=== PATIENT | male | born 1955 | race Caucasian/White ===

== ENCOUNTER 2016-09-04 18:08 | Inpatient (IN) | payer MEDICAID ==
[2016-09-04] MEDS ORDERED: Sodium Chloride 0.9% 10 ML Syringe FLUSH PRN ×2 (18:35→19:01)
[2016-09-04] MEDS ORDERED: Lactated Ringers 1,000 ML IV SCH ×2 (18:45→22:45)
--- NOTE | 2016-09-04 18:49 | EDM.PDOC ---
ED HPI GI/ABDOMINAL - General Chief Complaint: Abdominal Pain Stated Complaint: [facility] Time Seen by Provider: 09/04/16 18:28 Source: Reports: Patient, EMS, RN notes reviewed History Limitations: Reports: No limitations - History of Present Illness INITIAL COMMENTS - FREE TEXT/NARRATIVE: This 60-year-old gentleman presents emergency department a complaint of abdominal pain, he states he's had abdominal pain for about a week has been evaluated in the clinic x-rays and lab work at that time were consistent with a constipation type presentation. He states the pain used to come and go but now is more constant the last day and half has gotten very intense he is not passing gas has had bowel movements no problems with urination no shortness of breath chest pain or fevers no history of abdominal surgeries - Related Data Allergies/ADRs: Allergies Allergy/AdvReac Type Severity Reaction Status Date / Time Penicillins Allergy Cannot Verified 07/08/15 07:19 Remember Home Meds: Home Meds Aspirin [Adult Low Dose Aspirin EC] 81 mg PO DAILY 07/06/15 [History] Lisinopril [Zestril] 20 mg PO DAILY 07/06/15 [History] Triamcinolone Acetonide [Kenalog 0.1% Crm] 1 applic TOP BID 07/06/15 [History] Warfarin [Coumadin] 5 mg PO MOFR 07/06/15 [History] Warfarin [Coumadin] 7.5 mg PO SUTUWETHSA 07/06/15 [History] atorvaSTATin [Lipitor] 40 mg PO BEDTIME 07/06/15 [History] Amiodarone HCl [Amiodarone HCl] 200 mg PO ASDIRECTED 09/04/16 [History] Carvedilol [Carvedilol] 6.25 mg PO BID 09/04/16 [History] Ranitidine HCl [Ranitidine] 150 mg PO DAILY 09/04/16 [History] Past Medical History HEENT History: Reports: Impaired vision Cardiovascular History: Reports: Afib, Arrhythmia, High cholesterol, Hypertension Respiratory History: Reports: Bronchitis, recurrent Genitourinary History: Reports: Renal calculus Dermatologic History: Reports: Other (see below) Other Dermatologic History: rash on legs - Infectious Disease History Infectious Disease History: Reports: Chicken pox - Past Surgical History Cardiovascular Surgical History: Reports: Cardiac Ablation Male Surgical History: Reports: None Social & Family History - Tobacco Use Smoking Status *Q: Never Smoker Second Hand Smoke Exposure: No - Caffeine Use Caffeine Use: Reports: Coffee - Recreational Drug Use Recreational Drug Use: No ED ROS GENERAL - Review of Systems Review Of Systems: See Below Constitutional: Reports: no symptoms HEENT: Reports: No symptoms Respiratory: Reports: No Symptoms Cardiovascular: Reports: No symptoms GI/Abdominal: Reports: Abdominal pain, Nausea, Vomiting. Denies: Constipation, Diarrhea, Flatus : Reports: no symptoms Musculoskeletal: Reports: no symptoms Skin: Reports: no symptoms Neurological: Reports: No Symptoms ED EXAM, GI/ABD - Physical Exam Exam: See Below Exam Limited By: No limitations General Appearance: alert, WD/WN, no apparent distress Eyes: bilateral: normal appearance Head: atraumatic, normocephalic Neck: normal inspection, supple, non-tender, full range of motion Respiratory/Chest: no respiratory distress, lungs clear, normal breath sounds, no accessory muscle use Cardiovascular: regular rate, rhythm, no murmur GI/Abdominal: normal bowel sounds, soft, no distention, no abnormal bruit, no mass, tenderness (Generalized tenderness to palpation) Back Exam: No: CVA tenderness (R), CVA tenderness (L) Course - Vital Signs Last Recorded V/S: Last Vital Signs Temp 97.7 F 09/04/16 19:30 Pulse 101 H 09/04/16 22:09 Resp 20 09/04/16 19:30 BP 123/87 09/04/16 22:09 Pulse Ox 90 L 09/04/16 22:09 - Orders/Labs/Meds Orders: Active Orders 24 hr Category Date Time Status EKG Documentation Completion [RC] ASDIRECTED Care 09/04/16 18:36 Active Peripheral IV Care [RC] . DIRECTED Care 09/04/16 18:35 Active Abdomen Ltd [US] Stat Exams 09/04/16 20:28 Taken Abdomen Pelvis wo Cont [CT] Stat Exams 09/04/16 19:33 Taken CULTURE BLOOD [BC] Urgent Lab 09/04/16 22:37 Ordered CULTURE BLOOD [BC] Urgent Lab 09/04/16 22:37 Ordered UA W/MICROSCOPIC [URIN] Urgent Lab 09/04/16 18:35 Uncollected Iopamidol [Isovue-300 (61%)] Med 09/04/16 19:15 Active 126 ml IV . DIRECTED Lactated Ringers [Ringers, Lactated] 1,000 ml Med 09/04/16 18:45 Active IV ASDIRECTED Sodium Chloride 0.9% [Saline Flush] Med 09/04/16 18:35 Active 10 ml FLUSH ASDIRECTED PRN Sodium Chloride 0.9% [Saline Flush] Med 09/04/16 19:01 Active 10 ml FLUSH ONETIME PRN Blood Culture x2 Reflex Set [OM.PC] Urgent Oth 09/04/16 22:37 Ordered Peripheral IV Insertion Adult [OM.PC] Urgent Oth 09/04/16 18:35 Ordered EKG 12 Lead [EK] Stat Ther 09/04/16 18:35 Ordered Medication Orders Lactated Ringer's (Ringers, Lactated) 1,000 mls @ 500 mls/hr IV ASDIRECTED RADHA Last Admin: 09/04/16 19:13 Dose: 500 mls/hr Iopamidol (Isovue-300 (61%)) 126 ml IV . [facility]ED [facility] Sodium Chloride (Saline Flush) 10 ml FLUSH ASDIRECTED PRN PRN Reason: Keep Vein Open Sodium Chloride (Saline Flush) 10 ml FLUSH ONETIME PRN PRN Reason: PER RADIOLOGY PROTOCOL Labs: Laboratory Tests 09/04/16 09/04/16 09/04/16 Range/Units 18:48 18:48 18:48 WBC 9.3 (4.5-11.0) K/uL RBC 4.62 (4.30-5.90) M/uL Hgb 13.9 (12.0-15.0) g/dL Hct 42.6 (40.0-54.0) % MCV 92 (80-98) fL MCH 30 (27-31) pg MCHC 33 (32-36) % Plt Count 254 (150-400) K/uL Neut % (Auto) 67 H (36-66) % Lymph % (Auto) 16 L (24-44) % [place] % (Auto) 14 H (2-6) % Eos % (Auto) 2 (2-4) % Baso % (Auto) 1 (0-1) % PT > 100.0 H (9.5-12.0) sec INR (0.80-1.20) APTT 48.5 H (27.0-36.0) sec Sodium 148 (140-148) mmol/L Potassium 4.7 (3.6-5.2) mmol/L Chloride 112 H (100-108) mmol/L Carbon Dioxide 23 (21-32) mmol/L Anion Gap 17.7 H (5.0-14.0) mmol/L BUN 33 H (7-18) mg/dL Creatinine 1.5 H (0.8-1.3) mg/dL Est Cr Clr Drug Dosing 51.30 mL/min Estimated GFR (MDRD) 48 L (>60) Glucose 119 H (74-106) mg/dL Lactic Acid (0.4-2.0) mmol/L Calcium 8.7 (8.5-10.1) mg/dL Total Bilirubin 1.4 H (0.2-1.0) mg/dL AST 39 H (15-37) U/L ALT 70 (12-78) U/L Alkaline Phosphatase 99 (46-116) U/L Troponin I 0.022 (0.000-0.056) ng/mL C-Reactive Protein (0.0-0.3) mg/dL Total Protein 6.7 (6.4-8.2) g/dL Albumin 3.4 (3.4-5.0) g/dL Globulin 3.3 (2.3-3.5) g/dL Albumin/Globulin Ratio 1.0 L (1.2-2.2) Lipase 134 (73-393) U/L 09/04/16 09/04/16 Range/Units 18:48 22:12 WBC (4.5-11.0) K/uL RBC (4.30-5.90) M/uL Hgb (12.0-15.0) g/dL Hct (40.0-54.0) % MCV (80-98) fL MCH (27-31) pg MCHC (32-36) % Plt Count (150-400) K/uL Neut % (Auto) (36-66) % Lymph % (Auto) (24-44) % Baker % (Auto) (2-6) % Eos % (Auto) (2-4) % Baso % (Auto) (0-1) % PT (9.5-12.0) sec INR (0.80-1.20) APTT (27.0-36.0) sec Sodium (140-148) mmol/L Potassium (3.6-5.2) mmol/L Chloride (100-108) mmol/L Carbon Dioxide (21-32) mmol/L Anion Gap (5.0-14.0) mmol/L BUN (7-18) mg/dL Creatinine (0.8-1.3) mg/dL Est Cr Clr Drug Dosing mL/min Estimated GFR (MDRD) (>60) Glucose (74-106) mg/dL Lactic Acid 2.3 H (0.4-2.0) mmol/L Calcium (8.5-10.1) mg/dL Total Bilirubin (0.2-1.0) mg/dL AST (15-37) U/L ALT (12-78) U/L Alkaline Phosphatase (46-116) U/L Troponin I (0.000-0.056) ng/mL C-Reactive Protein 0.46 H (0.0-0.3) mg/dL Total Protein (6.4-8.2) g/dL Albumin (3.4-5.0) g/dL Globulin (2.3-3.5) g/dL Albumin/Globulin Ratio (1.2-2.2) Lipase (73-393) U/L Meds: Medications Generic Name Dose Route Start Last Admin Trade Name Freq PRN Reason Stop Dose Admin Lactated Ringer's 1,000 mls @ 500 mls/hr 09/04/16 18:45 09/04/16 19:13 Ringers, Lactated IV 500 mls/hr ASDIRECTED RADHA Administration Iopamidol 126 ml 09/04/16 19:15 Isovue-300 (61%) IV . DIRECTED RADHA Sodium Chloride 10 ml 09/04/16 18:35 Saline Flush FLUSH ASDIRECTED PRN Keep Vein Open Sodium Chloride 10 ml 09/04/16 19:01 Saline Flush FLUSH ONETIME PRN PER RADIOLOGY PROTOCOL Discontinued Medications Generic Name Dose Route Start Last Admin Trade Name Freq PRN Reason Stop Dose Admin Hydromorphone HCl 1 mg 09/04/16 19:20 09/04/16 19:27 Dilaudid IVPUSH 09/04/16 19:21 1 mg ONETIME ONE Administration Sodium Chloride 78 mls @ 3 mls/sec 09/04/16 19:01 Normal Saline IV 09/04/16 19:02 ONETIME ONE Ondansetron HCl 4 mg 09/04/16 20:21 09/04/16 20:25 Zofran IVPUSH 09/04/16 20:22 4 mg ONETIME ONE Administration Prochlorperazine Edisylate 5 mg 09/04/16 21:10 09/04/16 21:17 Compazine IVPUSH 09/04/16 21:11 5 mg ONETIME ONE Administration Departure - Departure Time of Disposition: 22:40 Disposition: Admitted As Inpatient 67 Condition: fair Clinical Impression: Cholecystitis Forms: ED Department Discharge - My Orders Last 24 Hours: My Active Orders 09/04/16 18:35 Peripheral IV Care [RC] . DIRECTED UA W/MICROSCOPIC [URIN] Urgent Sodium Chloride 0.9% [Saline Flush] 10 ml FLUSH ASDIRECTED PRN Peripheral IV Insertion Adult [OM.PC] Urgent EKG 12 Lead [EK] Stat 09/04/16 18:36 EKG Documentation Completion [RC] ASDIRECTED 09/04/16 18:45 Lactated Ringers [Ringers, Lactated] 1,000 ml IV ASDIRECTED 09/04/16 19:01 Sodium Chloride 0.9% [Saline Flush] 10 ml FLUSH ONETIME PRN 09/04/16 19:15 Iopamidol [Isovue-300 (61%)] 126 ml IV . DIRECTED 09/04/16 19:33 Abdomen Pelvis wo Cont [CT] Stat 09/04/16 20:28 Abdomen Ltd [US] Stat 09/04/16 22:37 CULTURE BLOOD [BC] Urgent CULTURE BLOOD [BC] Urgent Blood Culture x2 Reflex Set [OM.PC] Urgent - Assessment/Plan Last 24 Hours: My Active Orders 09/04/16 18:35 Peripheral IV Care [RC] . DIRECTED UA W/MICROSCOPIC [URIN] Urgent Sodium Chloride 0.9% [Saline Flush] 10 ml FLUSH ASDIRECTED PRN Peripheral IV Insertion Adult [OM.PC] Urgent EKG 12 Lead [EK] Stat 09/04/16 18:36 EKG Documentation Completion [RC] ASDIRECTED 09/04/16 18:45 Lactated Ringers [Ringers, Lactated] 1,000 ml IV ASDIRECTED 09/04/16 19:01 Sodium Chloride 0.9% [Saline Flush] 10 ml FLUSH ONETIME PRN 09/04/16 19:15 Iopamidol [Isovue-300 (61%)] 126 ml IV . DIRECTED 09/04/16 19:33 Abdomen Pelvis wo Cont [CT] Stat 09/04/16 20:28 Abdomen Ltd [US] Stat 09/04/16 22:37 CULTURE BLOOD [BC] Urgent CULTURE BLOOD [BC] Urgent Blood Culture x2 Reflex Set [OM.PC] Urgent Plan: Assessment Acuity = acute Site and laterality = cholecystitis complicated patient with known history of atrial fibrillation on chronic anticoagulation that is supratherapeutic Etiology = unclear etiology Manifestations = pain, nausea, vomiting Location of injury = home Lab values = CBC within normal limits INR not measurable, creatinine elevated at 1.5 consistent with acute renal failure stage GIII a lactic acid mildly elevated at 2.3 consistent lactic acidosis total bilirubin elevated 1.4 consistent hyperbilirubinemia troponin is negative CT scan demonstrates mild Peary cholecystic fat stranding with minimal gallbladder thickening, ultrasound demonstrates gallbladder thickening with possible fluid edema within the gallbladder wall no stones or sludge noted EKG demonstrates atrial fibrillation Plan Called discussed case with Dr. Barnes general surgery recommended admission he will evaluate the patient in the hospital Patient was in agreement with the plan all questions were answered, This note was dictated using [employer] voice recognition software please call with any questions.
[2016-09-04] MEDS ORDERED: Iopamidol 612 MG/ML 150 ML Bottle IV SCH (19:15)
[2016-09-04] MEDS ORDERED: HYDROmorphone 1 MG/ML Syringe IVPUSH ONE (19:20)
[2016-09-04] MEDS ORDERED: Ondansetron 4 MG/2 ML SDV IVPUSH ONE (20:21)
[2016-09-04] MEDS ORDERED: Prochlorperazine 10 MG/2 ML SDV IVPUSH ONE (21:10)
[2016-09-04] MEDS ORDERED: Zolpidem 5 MG Tab PO PRN (22:44)
[2016-09-04] MEDS ORDERED: Phytonadione 10 MG in Sodium Chloride 0.9% 50 ML IV ONE (22:47)
[2016-09-04] MEDS ORDERED: HYDROmorphone/Normal Saline 15 MG/30 ML PCA IV PRN (22:50)
[2016-09-04] MEDS ORDERED: Naloxone 0.4 MG/ML SDV IVPUSH PRN (22:50)
[2016-09-04] MEDS: cefOXitin 2 GM in Sodium Chloride 0.9% 50 ML IV SCH (23:49)
[2016-09-04] MEDS: Ondansetron 4 MG/2 ML SDV IV PRN (23:51)
[2016-09-05] MEDS: cefOXitin 2 GM in Sodium Chloride 0.9% 50 ML IV SCH ×4 (05:02→22:16)
[2016-09-05] MEDS: Amiodarone 200 MG Tab PO SCH ×2 (08:35→20:38)
[2016-09-05] MEDS: Famotidine 20 MG Tab PO SCH (08:35)
[2016-09-05] MEDS: Lisinopril 20 MG Tab PO SCH (08:35)
[2016-09-05] MEDS: Carvedilol 6.25 MG Tab PO SCH ×2 (08:35→20:38)
[2016-09-05] MEDS: Aztreonam/Dextrose-Water 1 GM in Premix Bag 1 BAG IV SCH ×2 (08:36→16:18)
[2016-09-05] MEDS: Triamcinolone Acetonide 0.1% Crm 15 GM Tube TOP SCH ×2 (08:38→20:39)
[2016-09-05] MEDS ORDERED: Phytonadione 10 MG in Sodium Chloride 0.9% 50 ML IV ONE (10:00)
[2016-09-05] MEDS: Dextrose 5%-Lactated Ringers 1,000 ML IV SCH ×2 (11:24→22:09)
[2016-09-05] MEDS: Ondansetron 4 MG/2 ML SDV IV PRN ×2 (12:36→19:20)
--- NOTE | 2016-09-05 16:25 | PCM.HP ---
H&P History of Present Illness - General Date of Service: 09/05/16 Admit Problem/Dx: Admission Diagnosis/Problem Admission Diagnosis/Problem Cholecystitis Source of Information: Patient History Limitations: Reports: No limitations - History of Present Illness Initial Comments - Free Text/Narative: Developed abdominal pain that started in the mid epigastric area that radiates to his back. Location: Reports: abdomen Quality: Reports: Pressure, Sharp, Stabbing Severity: moderate Improves with: Reports: None Worsens with: Reports: Eating Context: Reports: sick contact Associated Symptoms: Reports: nausea/vomiting Abdominal Pain Score (Numeric/FACES): 4 - Related Data Allergies/Adverse Reactions: Allergies Allergy/AdvReac Type Severity Reaction Status Date / Time Penicillins Allergy Cannot Verified 07/08/15 07:19 Remember Home Medications: Home Meds Aspirin [Adult Low Dose Aspirin EC] 81 mg PO DAILY 07/06/15 [History] Lisinopril [Zestril] 20 mg PO DAILY 07/06/15 [History] Triamcinolone Acetonide [Kenalog 0.1% Crm] 1 applic TOP BID 07/06/15 [History] Warfarin [Coumadin] 5 mg PO MOFR 07/06/15 [History] Warfarin [Coumadin] 7.5 mg PO SUTUWETHSA 07/06/15 [History] atorvaSTATin [Lipitor] 40 mg PO BEDTIME 07/06/15 [History] Amiodarone HCl [Amiodarone HCl] 200 mg PO ASDIRECTED 09/04/16 [History] Carvedilol [Carvedilol] 6.25 mg PO BID 09/04/16 [History] Ranitidine HCl [Ranitidine] 150 mg PO BID 09/04/16 [History] Past Medical History HEENT History: Reports: Impaired vision Cardiovascular History: Reports: Afib, Arrhythmia, High cholesterol, Hypertension Respiratory History: Reports: Bronchitis, recurrent Genitourinary History: Reports: Renal calculus Hematologic History: Reports: Other (see below) Other Hematologic History: coumadin use, with current high INR Dermatologic History: Reports: Other (see below) Other Dermatologic History: rash on legs - Infectious Disease History Infectious Disease History: Reports: Chicken pox - Past Surgical History HEENT Surgical History: Reports: None Cardiovascular Surgical History: Reports: Cardiac Ablation Respiratory Surgical History: Reports: None Male Surgical History: Reports: None Social & Family History - Family History Family Medical History: Noncontributory - Tobacco Use Smoking Status *Q: Never Smoker Second Hand Smoke Exposure: No - Caffeine Use Caffeine Use: Reports: Coffee - Recreational Drug Use Recreational Drug Use: No H&P Review of Systems - Review of Systems: Review Of Systems: See Below General: Reports: ROS unobtainable HEENT: Reports: no symptoms Pulmonary: Reports: No Symptoms Cardiovascular: Reports: no symptoms Gastrointestinal: Reports: Abdominal pain, Nausea Genitourinary: Reports: no symptoms Musculoskeletal: Reports: no symptoms Skin: Reports: no symptoms Psychiatric: Reports: no symptoms Neurological: Reports: No Symptoms Hematologic/Lymphatic: Reports: no symptoms Immunologic: Reports: no symptoms Exam - Exam Exam: See Below - Vital Signs Vital Signs: Last Vital Signs Temp 97.3 F 09/05/16 15:22 Pulse 106 H 09/05/16 15:22 Resp 16 09/05/16 15:22 BP 116/93 H 09/05/16 15:22 Pulse Ox 98 09/05/16 15:22 Weight: 185 lb - Exam Quality Assessment: DVT prophylaxis General: alert, oriented, moderate distress HEENT: PERRLA Neck: supple Lungs: Clear to auscultation, Normal respiratory effort Cardiovascular: regular rate, regular rhythm Abdomen: tenderness (in upper ) (Male) Exam: Deferred Rectal (Males) Exam: Deferred Back Exam: normal inspection, full range of motion Extremities: normal inspection Skin: warm, dry, intact Neurological: cranial nerves intact, reflexes equal bilateral Neuro Extensive - Mental Status: alert, oriented x3, normal mood/affect Neuro Extensive - Motor, Sensory, Reflexes: CN II-XII intact, normal gait, normal reflexes Psychiatric: alert, normal affect, normal mood - Patient Data Lab Results last 24 hrs: Laboratory Results - last 24 hr 09/05/16 09/05/16 09/05/16 Range/Units 05:11 05:11 05:11 WBC 8.5 (4.5-11.0) K/uL RBC 4.37 (4.30-5.90) M/uL Hgb 13.4 (12.0-15.0) g/dL Hct 41.5 (40.0-54.0) % MCV 95 (80-98) fL MCH 31 (27-31) pg MCHC 32 (32-36) % Plt Count 211 (150-400) K/uL Neut % (Auto) 81 H (36-66) % Lymph % (Auto) 10 L (24-44) % [place] % (Auto) 9 H (2-6) % Eos % (Auto) 0 L (2-4) % Baso % (Auto) 0 (0-1) % PT 33.4 H (9.5-12.0) sec INR 3.04 H (0.80-1.20) Sodium 149 H (140-148) mmol/L Potassium 5.1 (3.6-5.2) mmol/L Chloride 113 H (100-108) mmol/L Carbon Dioxide 27 (21-32) mmol/L Anion Gap 14.1 H (5.0-14.0) mmol/L BUN 31 H (7-18) mg/dL Creatinine 1.5 H (0.8-1.3) mg/dL Est Cr Clr Drug Dosing 51.30 mL/min Estimated GFR (MDRD) 48 L (>60) Glucose 103 (74-106) mg/dL Calcium 8.5 (8.5-10.1) mg/dL Total Bilirubin 1.5 H (0.2-1.0) mg/dL AST 32 (15-37) U/L ALT 66 (12-78) U/L Alkaline Phosphatase 89 (46-116) U/L Scy-R-Qlephnaplex Pept (5-125) pg/mL Total Protein 6.2 L (6.4-8.2) g/dL Albumin 3.1 L (3.4-5.0) g/dL Globulin 3.1 (2.3-3.5) g/dL Albumin/Globulin Ratio 1.0 L (1.2-2.2) Urine Color Urine Appearance Urine pH (4.5-8.0) Ur Specific [place] (1.008-1.030) Urine Protein (NEGATIVE) mg/dL Urine Glucose (UA) (NEGATIVE) mg/dL Urine Ketones (NEGATIVE) mg/dL Urine Occult Blood (NEGATIVE) Urine Nitrite (NEGAITVE) Urine Bilirubin (NEGATIVE) Urine Urobilinogen (NORMAL) mg/dL Ur Leukocyte Esterase (NEGATIVE) Urine RBC (0-5) Urine WBC (0-5) Ur Epithelial Cells Amorphous Sediment Urine Bacteria Urine Mucus Urine Other 09/05/16 09/05/16 09/05/16 Range/Units 07:09 09:09 21:00 WBC (4.5-11.0) K/uL RBC (4.30-5.90) M/uL Hgb (12.0-15.0) g/dL Hct (40.0-54.0) % MCV (80-98) fL MCH (27-31) pg MCHC (32-36) % Plt Count (150-400) K/uL Neut % (Auto) (36-66) % Lymph % (Auto) (24-44) % [place] % (Auto) (2-6) % Eos % (Auto) (2-4) % Baso % (Auto) (0-1) % PT (9.5-12.0) sec INR (0.80-1.20) Sodium (140-148) mmol/L Potassium (3.6-5.2) mmol/L Chloride (100-108) mmol/L Carbon Dioxide (21-32) mmol/L Anion Gap (5.0-14.0) mmol/L BUN (7-18) mg/dL Creatinine (0.8-1.3) mg/dL Est Cr Clr Drug Dosing mL/min Estimated GFR (MDRD) (>60) Glucose (74-106) mg/dL Calcium (8.5-10.1) mg/dL Total Bilirubin (0.2-1.0) mg/dL AST (15-37) U/L ALT (12-78) U/L Alkaline Phosphatase (46-116) U/L Olw-D-Hmghzddtdpb Pept 4383 H 5557 H (5-125) pg/mL Total Protein (6.4-8.2) g/dL Albumin (3.4-5.0) g/dL Globulin (2.3-3.5) g/dL Albumin/Globulin Ratio (1.2-2.2) Urine Color Yellow Urine Appearance Cloudy Urine pH 5.0 (4.5-8.0) Ur Specific [place] 1.030 (1.008-1.030) Urine Protein Trace (NEGATIVE) mg/dL Urine Glucose (UA) Normal (NEGATIVE) mg/dL Urine Ketones 15 H (NEGATIVE) mg/dL Urine Occult Blood Negative (NEGATIVE) Urine Nitrite Negative (NEGAITVE) Urine Bilirubin Negative (NEGATIVE) Urine Urobilinogen Normal (NORMAL) mg/dL Ur Leukocyte Esterase Negative (NEGATIVE) Urine RBC 5-10 H (0-5) Urine WBC 0-5 (0-5) Ur Epithelial Cells Few Amorphous Sediment Not seen Urine Bacteria Not seen Urine Mucus Many Urine Other See note Result Diagrams: 09/05/16 05:11 09/05/16 05:11 *Q Meaningful Use (ADM) - VTE *Q VTE Criteria *Q: - Stroke *Q Stroke Criteria *Q: - AMI *Q AMI Criteria *Q: Problem List Initiated/Reviewed/Updated: Yes Orders Last 24hrs: Active Orders 24 hr Category Date Time Status Communication Order [RC] STAT Care 09/04/16 22:51 Active Incentive Spirometry [RT Incentive Spirometry] [RC] Care 09/05/16 09:14 Active ASDIRECTED Notify Provider [RC] PRN Care 09/04/16 22:51 Active LAMINA SEARCHER Record [RC] PER UNIT ROUTINE Care 09/04/16 22:51 Active Pulse Oximetry [RC] CONTINUOUS Care 09/04/16 22:51 Active Verify Patient Consent Obtain [RC] ASDIRECTED Care 09/05/16 09:14 Active NPO After Midnight [Nothing per Oral After Midnight Diet 09/05/16 Dinner Active Diet] [DIET] CBC W/O DIFF,HEMOGRAM [HEME] Routine Lab 09/06/16 04:00 Ordered COMPREHENSIVE METABOLIC PN,CMP [CHEM] Routine Lab 09/06/16 04:00 Ordered INR,PT,PROTHROMBIN TIME [COAG] Routine Lab 09/05/16 16:00 Received MAGNESIUM [CHEM] Routine Lab 09/06/16 04:00 Ordered PHOSPHORUS [CHEM] Routine Lab 09/06/16 04:00 Ordered PRO B-TYPE NATRIUR PEPT,BNPPRO [CHEM] Routine Lab 09/06/16 04:00 Ordered Amiodarone [Cordarone] Med 09/07/16 09:00 Active 200 mg PO DAILY Amiodarone [Cordarone] Med 09/05/16 09:00 Active 400 mg PO BID Aztreonam/Dextrose-Water [Azactam in Dextrose,Iso- Med 09/05/16 08:00 Active Osmotic 1 GM/50 ML] 1 gm Premix Bag 1 bag IV Q8H Carvedilol [Coreg] Med 09/05/16 09:00 Active 6.25 mg PO BID Dextrose 5%-Lactated Ringers 1,000 ml Med 09/05/16 09:30 Active IV ASDIRECTED Famotidine [Pepcid] Med 09/05/16 09:00 Active 20 mg PO DAILY HYDROmorphone/Normal Saline [Dilaudid LAMINA SEARCHER 15 MG in NS Med 09/04/16 22:50 Active 30 ML] See Protocol IV ASDIRECTED PRN Lisinopril [Prinivil] Med 09/05/16 09:00 Active 20 mg PO DAILY Naloxone [Narcan] Med 09/04/16 22:50 Active 0.4 mg IVPUSH Q2M PRN Triamcinolone Acetonide [Triamcinolone Acetonide 0.1% Med 09/05/16 09:00 Active Crm] 0 gm TOP BID atorvaSTATin [Lipitor] Med 09/05/16 21:00 Active 40 mg PO BEDTIME cefOXitin [Mefoxin] 2 gm Med 09/04/16 23:00 Active Sodium Chloride 0.9% [Normal Saline] 50 ml IV Q6H Medication Discontinuation Instructions [OM.PC] Stat Oth 09/04/16 22:51 Ordered SCD [Sequential Compression Device] [OM.PC] Routine Oth 09/05/16 02:40 Ordered Medication Orders Amiodarone HCl (Cordarone) 400 mg PO BID [facility] Stop: 09/06/16 21:00 Last Admin: 09/05/16 08:35 Dose: 400 mg Amiodarone HCl (Cordarone) 200 mg PO DAILY [facility] Atorvastatin Calcium (Lipitor) 40 mg PO BEDTIME [facility] Carvedilol (Coreg) 6.25 mg PO BID [facility] Last Admin: 09/05/16 08:35 Dose: 6.25 mg Famotidine (Pepcid) 20 mg PO DAILY [facility] Last Admin: 09/05/16 08:35 Dose: 20 mg Hydromorphone HCl (Dilaudid Packing Machine Feeder 15 Mg In Ns 30 Ml) 0 mg IV ASDIRECTED PRN; Protocol PRN Reason: Pain Last Admin: 09/04/16 23:57 Dose: 15 mg Cefoxitin Sodium 2 gm/ Sodium (Chloride) 50 mls @ 100 mls/hr IV Q6H [facility] Last Admin: 09/05/16 12:00 Dose: 100 mls/hr Admin: 09/05/16 05:02 Dose: 100 mls/hr Admin: 09/04/16 23:49 Dose: 100 mls/hr Aztreonam/Dextrose 1 gm/ (Premix) 50 mls @ 100 mls/hr IV Q8H [facility] Last Admin: 09/05/16 16:18 Dose: 100 mls/hr Admin: 09/05/16 08:36 Dose: 100 mls/hr Dextrose/Lactated Ringer's (Dextrose 5%-Lactated Ringers) 1,000 mls @ 100 mls/ hr IV ASDIRECTED [facility] Last Admin: 09/05/16 11:24 Dose: 100 mls/hr Lisinopril (Prinivil) 20 mg PO DAILY [facility] Last Admin: 09/05/16 08:35 Dose: 20 mg Naloxone HCl (Narcan) 0.4 mg IVPUSH Q2M PRN PRN Reason: Respiratory Distress Ondansetron HCl (Zofran) 4 mg IV Q4H PRN PRN Reason: Nausea/Vomiting Last Admin: 09/05/16 12:36 Dose: 4 mg Admin: 09/04/16 23:51 Dose: 4 mg Sodium Chloride (Saline Flush) 10 ml FLUSH ASDIRECTED PRN PRN Reason: Keep Vein Open Triamcinolone Acetonide (Triamcinolone Acetonide 0.1% Crm) 0 gm TOP BID [facility] Last Admin: 09/05/16 08:38 Dose: 1 applic Zolpidem Tartrate (Ambien) 5 mg PO BEDTIME PRN PRN Reason: Sleep Assessment/Plan Comment:: Assessment: Cholecystitis Plan: Lap Possible Open for Cholecystectomy - General Anesthesia - 09/06/16 NPO after HIPOLITO Gomes
[2016-09-05] MEDS: atorvaSTATin 20 MG Tab PO SCH (20:39)
[2016-09-06] MEDS: Aztreonam/Dextrose-Water 1 GM in Premix Bag 1 BAG IV SCH ×4 (00:55→23:11)
[2016-09-06] MEDS: cefOXitin 2 GM in Sodium Chloride 0.9% 50 ML IV SCH ×4 (05:40→23:09)
[2016-09-06] MEDS ORDERED: Bupivacaine 0.5%/EPINEPHrine 1:200,000 50 ML MDV ONE (06:45)
[2016-09-06] MEDS ORDERED: Povidone-Iodine 10% Soln 118.25 ML Bottle ONE (06:58)
[2016-09-06] MEDS: Dextrose 5%-Lactated Ringers 1,000 ML IV SCH ×2 (07:42→13:53)
[2016-09-06] MEDS: Carvedilol 6.25 MG Tab PO SCH ×2 (08:44→21:31)
[2016-09-06] MEDS: Amiodarone 200 MG Tab PO SCH ×2 (08:45→21:31)
[2016-09-06] MEDS: Lisinopril 20 MG Tab PO SCH (08:46)
[2016-09-06] MEDS: Famotidine 20 MG Tab PO SCH (08:46)
[2016-09-06] MEDS: Triamcinolone Acetonide 0.1% Crm 15 GM Tube TOP SCH ×2 (08:46→21:35)
--- NOTE | 2016-09-06 09:28 | PN ---
DATE OF SERVICE: 09/06/2016 SUBJECTIVE: Domenic is a 60-year-old male. He states his pain is controlled. He will be having a laparoscopic cholecystectomy. His surgery was delayed due to his ProTime level and last night his PT was 17.5, INR was 1.63. This morning it was 14.9 and 1.39. He has no other questions or concerns. OBJECTIVE: GENERAL: Domenic Leger is a 60-year-old male. VITAL SIGNS: TPR is 98.1, 114, 16. Blood pressure 93/72. HEENT: Negative. NECK: Supple. HEART: Regular rate and rhythm. LUNGS: Clear. ABDOMEN: Soft, minimally tender in the right upper quadrant. EXTREMITIES: SCDs are on, and no peripheral edema. ASSESSMENT: Acute cholecystitis. PLAN: Orders to be written after OR. Continued to be n.p.o. Batsheva Patel PA-C /[id number]
[2016-09-06] MEDS ORDERED: fentaNYL 250 MCG/5 ML SDV ONE (09:48)
[2016-09-06] MEDS ORDERED: Succinylcholine/Normal Saline 200 MG/10 ML Syringe ONE (09:49)
[2016-09-06] MEDS ORDERED: Rocuronium 50 MG/5 ML Vial ONE (09:49)
[2016-09-06] MEDS ORDERED: Neostigmine Methylsulfate 1 MG/ML 5 ML Syringe ONE (09:49)
[2016-09-06] MEDS ORDERED: Dexamethasone 4 MG/ML SDV ONE (09:49)
[2016-09-06] MEDS ORDERED: Propofol 200 MG/20 ML SDV ONE (09:49)
[2016-09-06] MEDS ORDERED: Ondansetron 4 MG/2 ML SDV ONE (09:49)
[2016-09-06] MEDS ORDERED: Warfarin 5 MG Tab PO ONE (17:00)
[2016-09-06] MEDS: Ondansetron 4 MG/2 ML SDV IV PRN (18:04)
[2016-09-06] MEDS: atorvaSTATin 20 MG Tab PO SCH (21:31)
[2016-09-07] MEDS: Dextrose 5%-Lactated Ringers 1,000 ML IV SCH (02:50)
[2016-09-07] MEDS: cefOXitin 2 GM in Sodium Chloride 0.9% 50 ML IV SCH ×4 (05:24→23:41)
--- NOTE | 2016-09-07 08:05 | PN ---
DATE OF SERVICE: 09/07/2016 SUBJECTIVE: Domenic did have some difficulties last night with atrial fibrillation. His heart rate went to 180. He is voiding frequently. Pain is controlled. His temp max is 98.7. REVIEW OF SYSTEMS: Remainder of review of systems negative for any pertinent positives or negatives. OBJECTIVE: GENERAL: Domenic Leger is a 60-year-old male. He is alert and orientated. Color pale. VITAL SIGNS: TPR 97.3, 93, 16, blood pressure is 115/86. Oral intake 895, output 200 mL. BETH put out 45 mL of a light pink serous drainage. HEENT: Negative. NECK: Supple. HEART: Regular rate and rhythm. Right now, his pulse rate was 90. He is resting comfortably. ABDOMEN: Dressings dry and intact. Abdominal binder is on and BETH drain is intact. ASSESSMENT: Laparoscopic cholecystectomy and repair of umbilical hernia for acute cholecystitis with pericholecystic abscess and umbilical hernia. Date of surgery, 09/06/2016. PLAN: 1. Regular diet, which is already ordered, to advance as tolerated. 2. Consult Hudson Guzman MD, in regard to amiodarone dosing. 3. Dressing off, may shower. 4. Good pulmonary toilet encouraged. 5. We will evaluate p.r.n. or in a.m. Batsheva Patel PA-C /[id number]
[2016-09-07] MEDS: Aztreonam/Dextrose-Water 1 GM in Premix Bag 1 BAG IV SCH ×2 (08:42→16:50)
[2016-09-07] MEDS: Carvedilol 6.25 MG Tab PO SCH ×2 (08:42→20:08)
[2016-09-07] MEDS: Famotidine 20 MG Tab PO SCH (08:43)
[2016-09-07] MEDS: Lisinopril 20 MG Tab PO SCH (08:43)
[2016-09-07] MEDS: Triamcinolone Acetonide 0.1% Crm 15 GM Tube TOP SCH ×2 (08:44→20:06)
[2016-09-07] MEDS: Acetaminophen/HYDROcodone 325-5 MG Tab PO PRN ×2 (08:58→19:54)
[2016-09-07] MEDS ORDERED: Dextrose 5%-Lactated Ringers 1,000 ML IV SCH (09:00)
[2016-09-07] MEDS ORDERED: Amiodarone 200 MG Tab PO SCH ×2 (09:00→10:06)
[2016-09-07] MEDS ORDERED: Furosemide 40 MG/4 ML VIAL IVPUSH ONE (10:05)
--- NOTE | 2016-09-07 10:12 | PCM.CONS ---
H&P History of Present Illness - General Date of Service: 09/07/16 Admit Problem/Dx: Admission Diagnosis/Problem Admission Diagnosis/Problem Cholecystitis Source of Information: Patient, Provider History Limitations: Reports: No limitations - History of Present Illness Initial Comments - Free Text/Narative: Domenic presented to the emergency room with right upper quadrant pain that radiated to his back and he was admitted for laparoscopic cholecystectomy. He is now postop day to. I was asked to see him by Dr. Barnes/Batsheva Patel regarding amiodarone dosing in atrial fibrillation management. Domenic says that he feels fairly well at this time with only minimal abdominal pain postoperatively. He does complain of some shortness of breath, especially with activity. He has been requiring supplemental oxygen. He says that at baseline he has shortness of breath with activity but it has been much worse since the surgery. He's not having any fevers. Bowels have been moving. He has noticed some increase in his ankle swelling but remains mild. He was started on amiodarone just less than a week ago with atrial fibrillation and a rapid ventricular response noted. He does have a history of atrial fibrillation ablation. Abdominal Pain Score (Numeric/FACES): 4 - Related Data Allergies/Adverse Reactions: Allergies Allergy/AdvReac Type Severity Reaction Status Date / Time Penicillins Allergy Cannot Verified 07/08/15 07:19 Remember Home Medications: Home Meds Aspirin [Adult Low Dose Aspirin EC] 81 mg PO DAILY 07/06/15 [History] Lisinopril [Zestril] 20 mg PO DAILY 07/06/15 [History] Triamcinolone Acetonide [Kenalog 0.1% Crm] 1 applic TOP BID 07/06/15 [History] Warfarin [Coumadin] 5 mg PO MOFR 07/06/15 [History] Warfarin [Coumadin] 7.5 mg PO SUTUWETHSA 07/06/15 [History] atorvaSTATin [Lipitor] 40 mg PO BEDTIME 07/06/15 [History] Amiodarone HCl [Amiodarone HCl] 200 mg PO ASDIRECTED 09/04/16 [History] Carvedilol [Carvedilol] 6.25 mg PO BID 09/04/16 [History] Ranitidine HCl [Ranitidine] 150 mg PO BID 09/04/16 [History] Past Medical History HEENT History: Reports: Impaired vision Cardiovascular History: Reports: Afib, Arrhythmia, High cholesterol, Hypertension Respiratory History: Reports: Bronchitis, recurrent Genitourinary History: Reports: Renal calculus Hematologic History: Reports: Other (see below) Other Hematologic History: coumadin use, with current high INR Dermatologic History: Reports: Other (see below) Other Dermatologic History: rash on legs - Infectious Disease History Infectious Disease History: Reports: Chicken pox - Past Surgical History HEENT Surgical History: Reports: None Cardiovascular Surgical History: Reports: Cardiac Ablation Respiratory Surgical History: Reports: None Male Surgical History: Reports: None Social & Family History - Family History Family Medical History: Noncontributory - Tobacco Use Smoking Status *Q: Never Smoker Second Hand Smoke Exposure: No - Caffeine Use Caffeine Use: Reports: Coffee - Alcohol Use Alcohol Use History: No - Recreational Drug Use Recreational Drug Use: No H&P Review of Systems - Review of Systems: Review Of Systems: See Below Free Text/Narrative: A complete 12 point review of systems was obtained. Pertinent positives and negatives are noted in the history of present illness. All other systems were reviewed and were negative except as noted. Exam - Exam Exam: See Below - Vital Signs Vital Signs: Last Vital Signs Temp 36.3 C 09/07/16 07:03 Pulse 93 09/07/16 08:42 Resp 16 09/07/16 07:03 BP 115/86 09/07/16 08:43 Pulse Ox 97 09/07/16 07:38 Weight: 83.915 kg - Exam Quality Assessment: supplemental oxygen. No: urinary catheter General: alert, oriented, cooperative. No: mild distress HEENT: Conjunctiva clear, Mucosa moist & pink. No: Scleral icterus Neck: supple, trachea midline, JVD Lungs: Normal respiratory effort, Decreased breath sounds (both bases), Crackles (both bases) Cardiovascular: regular rate, irregular rhythm. No: systolic murmur Abdomen: normal bowel sounds, soft. No: distention Back Exam: normal inspection, full range of motion Extremities: normal inspection, edema (trace bilateral ankle edema) Peripheral Pulses: 2+: dorsalis pedis (L), dorsalis pedis (R) Skin: warm, dry, intact Neuro Extensive - Mental Status: alert, oriented x3 Neuro Extensive - Motor, Sensory, Reflexes: CN II-XII intact. No: dysarthria, abnormal motor, tremor Psychiatric: alert, normal affect - Patient Data Lab Results last 24 hrs: Laboratory Results - last 24 hr 09/07/16 09/07/16 09/07/16 Range/Units 04:00 04:00 04:00 WBC 10.0 (4.5-11.0) K/uL RBC 4.27 L (4.30-5.90) M/uL Hgb 12.7 (12.0-15.0) g/dL Hct 41.5 (40.0-54.0) % MCV 97 (80-98) fL MCH 30 (27-31) pg MCHC 31 L (32-36) % Plt Count 209 (150-400) K/uL PT 14.6 H (9.5-12.0) sec INR 1.36 H (0.80-1.20) Sodium 146 (140-148) mmol/L Potassium 4.7 (3.6-5.2) mmol/L Chloride 112 H (100-108) mmol/L Carbon Dioxide 30 (21-32) mmol/L Anion Gap 8.7 (5.0-14.0) mmol/L BUN 17 (7-18) mg/dL Creatinine 1.2 (0.8-1.3) mg/dL Est Cr Clr Drug Dosing 64.13 mL/min Estimated GFR (MDRD) > 60 (>60) Glucose 136 H (74-106) mg/dL Calcium 8.2 L (8.5-10.1) mg/dL Phosphorus 3.0 (2.5-4.9) mg/dL Magnesium 1.6 L (1.8-2.4) mg/dL Total Bilirubin 1.2 H (0.2-1.0) mg/dL AST 44 H D (15-37) U/L ALT 65 (12-78) U/L Alkaline Phosphatase 76 (46-116) U/L Total Protein 6.1 L (6.4-8.2) g/dL Albumin 2.8 L (3.4-5.0) g/dL Globulin 3.3 (2.3-3.5) g/dL Albumin/Globulin Ratio 0.9 L (1.2-2.2) Result Diagrams: 09/07/16 04:00 09/07/16 04:00 Ryley Results last 24 hrs: Microbiology 04/11/17 22:45 Aerobic Blood Culture - Preliminary Blood - Arm, Right NO GROWTH AFTER 2 DAYS Anaerobic Blood Culture - Preliminary NO GROWTH AFTER 2 DAYS 09/06/16 12:17 Gram Stain - Final Gallbladder Imaging Impressions last 24 hrs: CT scan of the abdomen and pelvis - images personally reviewed - I reviewed the images of the CT scan including the lungs. He does have a very small left pleural effusion and a small to moderate right pleural effusion. No evidence for pneumonia or mass on the available images of the lungs. Consult PN Assessment/Plan POD#: 2 Procedures: Procedures DIAGNOSTIC COLONOSCOPY (07/08/15) ECHO EXAM OF ABDOMEN (08/30/16) TTE F-UP OR LMTD (11/15/14) TTE W/DOPPLER COMPLETE (09/16/14) (1) Atrial fibrillation with RVR SNOMED Code(s): 023784987489097 Code(s): I48.91 - UNSPECIFIED ATRIAL FIBRILLATION Current Visit: Yes Problem List Initiated/Reviewed/Updated: Yes My Orders last 24 hours: My Active Orders 09/07/16 09:00 Dextrose 5%-Lactated Ringers 1,000 ml IV ASDIRECTED 09/07/16 10:05 Furosemide [Lasix] 40 mg IVPUSH ONETIME ONE 09/07/16 10:06 Amiodarone [Cordarone] 400 mg PO DAILY 09/11/16 09:00 Amiodarone [Cordarone] 200 mg PO DAILY Plan: Assessment and Plan - Paroxysmal atrial fibrillation with rapid ventricular response - rate control has improved with use of amiodarone. He remains in atrial fibrillation. After reviewing his chart it appears that his weight is up 15 pounds from where was less than 2 months ago. I suspect that volume overload is driving his atrial fibrillation at this time. I don't see any evidence for infection. Bedside examination suggest some volume overload with JVD, edema and crackles. -Furosemide 40 mg x1 now and reassess this afternoon -Continue medical management including beta sunshine -Continue amiodarone with plan to give 4 additional doses of 400 mg once a day and then 200 mg daily starting next Saturday -Optimize electrolytes -Daily weights Chronic systolic congestive heart failure NYHA class II/III - he does not appear to be acutely decompensated at this time but he is over his dry weight. -Diuresis and medical management as above Acute cholecystitis status post cholecystectomy - clinically doing well from the standpoint. -Postop cares per surgical team Thank you for the interesting consultation and allowing me to be involved in Domenic's care. I will continue to follow along during the hospital stay. Hudson Guzman M.D. Requesting Provider: Dr Barnes Date Consult Requested: 09/07/16 Reason for Consult: atrial fibrillation management Patient History Reviewed: Yes Admission H&P Reviewed: Yes Notified Requestor: Yes Time Spent (in minutes): 45
[2016-09-07] MEDS: Amiodarone 200 MG Tab PO SCH (10:56)
[2016-09-07] MEDS ORDERED: Warfarin 2.5 MG Tab PO SCH (13:00)
[2016-09-07] MEDS: atorvaSTATin 20 MG Tab PO SCH (20:07)
[2016-09-08] MEDS: Aztreonam/Dextrose-Water 1 GM in Premix Bag 1 BAG IV SCH ×2 (00:03→08:18)
[2016-09-08] MEDS: cefOXitin 2 GM in Sodium Chloride 0.9% 50 ML IV SCH (04:25)
[2016-09-08] MEDS: Acetaminophen/HYDROcodone 325-5 MG Tab PO PRN (05:59)
[2016-09-08] MEDS: Carvedilol 6.25 MG Tab PO SCH (08:21)
[2016-09-08] MEDS: Amiodarone 200 MG Tab PO SCH (08:21)
[2016-09-08] MEDS: Famotidine 20 MG Tab PO SCH (08:22)
[2016-09-08] MEDS: Triamcinolone Acetonide 0.1% Crm 15 GM Tube TOP SCH (08:22)
[2016-09-08] MEDS: Lisinopril 20 MG Tab PO SCH (08:22)
--- NOTE | 2016-09-08 09:42 | PCM.CONSN ---
- General Info Date of Service: 09/08/16 Functional Status: Reports: pain controlled, tolerating diet, ambulating - Review of Systems General: Denies: Weakness Pulmonary: Denies: shortness of breath Gastrointestinal: Reports: Abdominal pain Systems Review Comment:: No acute events overnight. Respiratory status has improved and he is no longer hypoxic. Lower extremity edema has improved but not quite resolved. Abdominal pain is minimal. Still in atrial fibrillation but is currently rate controlled. - Patient Data Vitals - most recent: Last Vital Signs Temp 35.8 C 09/08/16 07:00 Pulse 88 09/08/16 08:21 Resp 18 09/08/16 07:00 BP 109/85 09/08/16 08:22 Pulse Ox 91 L 09/08/16 07:00 Weight - most recent: 89.267 kg I&O - last 24 hours: Intake & Output 09/07/16 09/08/16 09/08/16 22:59 06:59 14:59 Intake Total 1381 375 650 Output Total 585 150 750 Balance 796 225 -100 Lab Results last 24 hrs: Laboratory Results - last 24 hr 09/08/16 09/08/16 Range/Units 05:30 05:30 PT 27.5 H (9.5-12.0) sec INR 2.52 H (0.80-1.20) Sodium 147 (140-148) mmol/L Potassium 4.1 (3.6-5.2) mmol/L Chloride 111 H (100-108) mmol/L Carbon Dioxide 29 (21-32) mmol/L Anion Gap 11.1 (5.0-14.0) mmol/L BUN 19 H (7-18) mg/dL Creatinine 1.5 H (0.8-1.3) mg/dL Est Cr Clr Drug Dosing 51.30 mL/min Estimated GFR (MDRD) 48 L (>60) Glucose 108 H (74-106) mg/dL Calcium 8.3 L (8.5-10.1) mg/dL Ryley Results last 24 hrs: Microbiology 09/06/16 12:17 Gram Stain - Final Gallbladder Wound Culture - Preliminary NO GROWTH AFTER 1 DAY Anaerobic Culture - Preliminary NO GROWTH AFTER 1 DAY 09/04/16 22:45 Aerobic Blood Culture - Preliminary Blood - Arm, Right NO GROWTH AFTER 3 DAYS Anaerobic Blood Culture - Preliminary NO GROWTH AFTER 3 DAYS Med Orders - Current: Current Medications Hydrocodone Bitart/Acetaminophen (Dexter 325-5 Mg) 1 - 2 tab PO Q4H PRN PRN Reason: PAIN Last Admin: 09/08/16 05:59 Dose: 1 tab Amiodarone HCl (Cordarone) 200 mg PO DAILY [facility] Amiodarone HCl (Cordarone) 400 mg PO DAILY [facility] Stop: 09/10/16 09:01 Last Admin: 09/08/16 08:21 Dose: 400 mg Atorvastatin Calcium (Lipitor) 40 mg PO BEDTIME [facility] Last Admin: 09/07/16 20:07 Dose: 40 mg Carvedilol (Coreg) 6.25 mg PO BID [facility] Last Admin: 09/08/16 08:21 Dose: 6.25 mg Famotidine (Pepcid) 20 mg PO DAILY [facility] Last Admin: 09/08/16 08:22 Dose: 20 mg Hydromorphone HCl (Dilaudid [facility] 15 Mg In Ns 30 Ml) 0 mg IV ASDIRECTED PRN; Protocol PRN Reason: Pain Last Admin: 09/04/16 23:57 Dose: 15 mg Cefoxitin Sodium 2 gm/ Sodium (Chloride) 50 mls @ 100 mls/hr IV Q6H [facility] Last Admin: 09/08/16 04:25 Dose: 100 mls/hr Aztreonam/Dextrose 1 gm/ (Premix) 50 mls @ 100 mls/hr IV Q8H [facility] Last Admin: 09/08/16 08:18 Dose: 100 mls/hr Dextrose/Lactated Ringer's (Dextrose 5%-Lactated Ringers) 1,000 mls @ 25 mls/ hr IV ASDIRECTED [facility] Last Admin: 09/08/16 03:01 Dose: 25 mls/hr Lisinopril (Prinivil) 20 mg PO DAILY [facility] Last Admin: 09/08/16 08:22 Dose: 20 mg Naloxone HCl (Narcan) 0.4 mg IVPUSH Q2M PRN PRN Reason: Respiratory Distress Ondansetron HCl (Zofran) 4 mg IV Q4H PRN PRN Reason: Nausea/Vomiting Last Admin: 09/05/16 19:20 Dose: 4 mg Sodium Chloride (Saline Flush) 10 ml FLUSH ASDIRECTED PRN PRN Reason: Keep Vein Open Triamcinolone Acetonide (Triamcinolone Acetonide 0.1% Crm) 0 gm TOP BID [facility] Last Admin: 09/08/16 08:22 Dose: 1 applic Zolpidem Tartrate (Ambien) 5 mg PO BEDTIME PRN PRN Reason: Sleep Discontinued Medications Amiodarone HCl (Cordarone) 400 mg PO BID [facility] Stop: 09/06/16 21:00 Last Admin: 09/06/16 21:31 Dose: 400 mg Amiodarone HCl (Cordarone) 200 mg PO DAILY [facility] Amiodarone HCl (Cordarone) 400 mg PO DAILY [facility] Stop: 09/10/16 09:01 Bupivacaine HCl/Epinephrine Bitart (Marcaine 0.5%/Epinephrine 1:200,000) Confirm Administered Dose 50 ml .ROUTE .STK-MED ONE Stop: 09/06/16 06:46 Last Admin: 09/06/16 11:42 Dose: 10 ml Dexamethasone (Dexamethasone) Confirm Administered Dose 4 mg .ROUTE .STK-MED ONE Stop: 09/06/16 09:50 Fentanyl (Sublimaze) Confirm Administered Dose 250 mcg .ROUTE .STK-MED ONE Stop: 09/06/16 09:49 Furosemide (Lasix) 40 mg IVPUSH ONETIME ONE Stop: 09/07/16 10:06 Last Admin: 09/07/16 10:55 Dose: 40 mg Glycopyrrolate () Confirm Administered Dose 1 mg .ROUTE .STK-MED ONE Stop: 09/06/16 09:50 Hydromorphone HCl (Dilaudid) 1 mg IVPUSH ONETIME ONE Stop: 09/04/16 19:21 Last Admin: 09/04/16 19:27 Dose: 1 mg Lactated Ringer's (Ringers, Lactated) 1,000 mls @ 500 mls/hr IV ASDIRECTED [facility] Last Admin: 09/04/16 19:13 Dose: 500 mls/hr Sodium Chloride (Normal Saline) 78 mls @ 3 mls/sec IV ONETIME ONE Stop: 09/04/16 19:02 Last Admin: 09/05/16 22:15 Dose: Not Given Aztreonam 1 gm/ Sodium (Chloride) 50 mls @ 100 mls/hr IV Q8HR [facility] Lactated Ringer's (Ringers, Lactated) 1,000 mls @ 125 mls/hr IV ASDIRECTED [facility] Last Admin: 09/04/16 23:48 Dose: 125 mls/hr Phytonadione 10 mg/ Sodium (Chloride) 51 mls @ 100 mls/hr IV NOW ONE Stop: 09/04/16 23:17 Last Admin: 09/05/16 00:44 Dose: 100 mls/hr Aztreonam 1 gm/ Sodium (Chloride) 50 mls @ 100 mls/hr IV Q8H [facility] Last Admin: 09/05/16 01:01 Dose: 100 mls/hr Phytonadione 10 mg/ Sodium (Chloride) 51 mls @ 102 mls/hr IV ONETIME ONE Stop: 09/05/16 10:29 Last Admin: 09/05/16 11:23 Dose: 102 mls/hr Dextrose/Lactated Ringer's (Dextrose 5%-Lactated Ringers) 1,000 mls @ 100 mls/ hr IV ASDIRECTED [facility] Last Admin: 09/07/16 02:50 Dose: 100 mls/hr Iopamidol (Isovue-300 (61%)) 126 ml IV . DIRECTED [facility] Neostigmine Methylsulfate (Neostigmine) Confirm Administered Dose 5 mg .ROUTE .STK-MED ONE Stop: 09/06/16 09:50 Ondansetron HCl (Zofran) 4 mg IVPUSH ONETIME ONE Stop: 09/04/16 20:22 Last Admin: 09/04/16 20:25 Dose: 4 mg Ondansetron HCl (Zofran) Confirm Administered Dose 4 mg .ROUTE .STK-MED ONE Stop: 09/06/16 09:50 Povidone Iodine (Betadine 10% Soln) Confirm Administered Dose 1 ml .ROUTE .STK- MED ONE Stop: 09/06/16 06:59 Prochlorperazine Edisylate (Compazine) 5 mg IVPUSH ONETIME ONE Stop: 09/04/16 21:11 Last Admin: 09/04/16 21:17 Dose: 5 mg Propofol (Diprivan 20 Ml) Confirm Administered Dose 200 mg .ROUTE .STK-MED ONE Stop: 09/06/16 09:50 Rocuronium Bryan (Zemuron) Confirm Administered Dose 50 mg .ROUTE .STK-MED ONE Stop: 09/06/16 09:50 Sodium Chloride (Saline Flush) 10 ml FLUSH ONETIME PRN PRN Reason: PER RADIOLOGY PROTOCOL Succinylcholine Chloride (Succinylcholine In Ns Pf) Confirm Administered Dose 200 mg .ROUTE .STK-MED ONE Stop: 09/06/16 09:50 Warfarin Sodium (Coumadin) 10 mg PO ONETIME ONE Stop: 09/06/16 17:01 Last Admin: 09/06/16 16:46 Dose: 10 mg Warfarin Sodium (Coumadin) 7.5 mg PO DAILY@1300 RADHA Last Admin: 09/07/16 13:33 Dose: 7.5 mg - Exam Quality Assessment: No: supplemental oxygen General: alert, oriented, cooperative, no acute distress Neck: supple Lungs: Clear to auscultation, Normal respiratory effort Cardiovascular: Regular Rate, Irregular Rhythm. No: Murmurs Abdomen: soft, no distension Extremities: no cyanosis, edema (trace bilateral ankle edema) Skin: warm, dry Consult PN Assessment/Plan Procedures: Procedures DIAGNOSTIC COLONOSCOPY (07/08/15) ECHO EXAM OF ABDOMEN (08/30/16) PROTHROMBIN TIME (09/03/16) TTE F-UP OR LMTD (11/15/14) TTE W/DOPPLER COMPLETE (09/16/14) (1) Atrial fibrillation with RVR SNOMED Code(s): 391291992544873 Code(s): I48.91 - UNSPECIFIED ATRIAL FIBRILLATION (2) Chronic systolic CHF (congestive heart failure), NYHA class 2 SNOMED Code(s): 747370944, 917918776, 111300635 Code(s): I50.22 - CHRONIC SYSTOLIC (CONGESTIVE) HEART FAILURE Problem List Initiated/Reviewed/Updated: Yes My Orders last 24 hours: My Active Orders 09/07/16 09:00 Dextrose 5%-Lactated Ringers 1,000 ml IV ASDIRECTED 09/07/16 11:00 Amiodarone [Cordarone] 400 mg PO DAILY 09/08/16 09:41 Ready for Discharge [RC] PER UNIT ROUTINE 09/11/16 09:00 Amiodarone [Cordarone] 200 mg PO DAILY Plan: Assessment and Plan - Paroxysmal atrial fibrillation with rapid ventricular response - rate control has improved with use of amiodarone. He remains in atrial fibrillation. I suspect fluid is driving atrial fibrillation. I don't believe that a cardioversion will be beneficial until his volume status is closer to euvolemic. With recent surgery and a period off of anticoagulation holding off on a cardioversion make sense especially with minimal symptoms. -Furosemide 20 mg by mouth daily -Continue medical management including beta sunshine -Continue amiodarone with plan to give 2 additional doses of 400 mg once a day and then 200 mg daily starting next Saturday -Optimize electrolytes -Daily weights Chronic systolic congestive heart failure NYHA class II/III - he does not appear to be acutely decompensated at this time but he is 15 lbs over his dry weight. -Diuresis and medical management as above -f/u with Leidy Davenport in the heart failure clinic Acute cholecystitis status post cholecystectomy - clinically doing well from the standpoint. -Postop cares per surgical team Hudson Guzman M.D.
[2016-09-08 10:51] VITALS: BP 106/81
--- NOTE | 2016-09-09 15:14 | OR ---
ADDENDUM: This addendum should be added on to the end of the details of procedure section of the report and is as follows: Physician kindergarten teacher assistant, Batsheva Patel, played an essential role in assisting in this case, helping to position the patient, retract structures as needed, as well as suturing and cutting sutures when indicated. Her presence improved the patient's safety and decreased operative time. Henry Barnes MD /[id number]
--- NOTE | 2016-09-10 08:26 | PN ---
DATE OF SERVICE: 09/08/2016 The patient has been afebrile with stable vital signs. He is being released for Dr. Guzman yesterday and overall looks to be doing somewhat better. He has had no further rhythm problems. His pro-time is now therapeutic, and we will not give him any additional Coumadin today, as I think it will probably keep rising somewhat. The BETH drain can come out and, whether or not he will be discharged will be up to Dr. Guzman, after assessment of his medical status. Henry Barnes MD /[id number]
[2016-09-11] MEDS ORDERED: Amiodarone 200 MG Tab PO SCH (09:00)
--- NOTE | 2016-09-11 09:49 | OR ---
DATE OF PROCEDURE: 09/06/2016 PREOPERATIVE DIAGNOSIS: Acute cholecystitis. POSTOPERATIVE DIAGNOSES: 1. Severe cholecystitis with fluid collection with associated localized peritonitis (sterile versus infected abscess). 2. Umbilical hernia. OPERATIVE PROCEDURE: 1. Diagnostic laparoscopy with a cholecystectomy (05647). 2. Drainage of pericholecystic fluid collection (abscess) (30653). 3. Umbilical hernia repair (88899). ANESTHESIA: General. ESTATE PLANNING ATTORNEY: Batsheva Patel PA-C. INDICATIONS FOR PROCEDURE: This is a 60-year-old presenting with a picture of acute cholecystitis. Initially his pro time was over 8, and this has now been corrected, and he is to undergo a cholecystectomy. Potential risks of the procedure including bleeding, infection, injury to underlying viscera, as well as possibility of cardiopulmonary, septic, or hemorrhagic complications leading to were discussed, and the patient wishes to proceed. DETAILS OF PROCEDURE: The patient was taken to the room and placed in a supine position. After general endotracheal anesthesia was induced, the abdomen was prepped and draped. A transverse epigastric incision was made and the peritoneal cavity entered under direct vision with Optiview trocar and inflated 15 mmHg pressure with CO2. Laparoscope was inserted. No underlying trocar insertion site injuries were seen. Following this, a 12-mm subumbilical trocar was placed. The patient was noted to have an umbilical hernia. Portion of the sac was then excised. The trocar was eventually passed through the center of the umbilical hernia to facilitate subsequent repair. One additional 5 mm trocar was placed in the right upper quadrant. At this point, the gallbladder was freed up from some loose acute adhesions to the omentum. These were taken down bluntly. Gallbladder was then retrieved with laparoscopic forceps so as to allow adequate grasping of the gallbladder. As one pulled this forward, there was thin purulent fluid collection with intense redness in the localized area, i.e., localized peritonitis. Cultures of this were obtained and as it was aspirated and evacuated. Dissection began at the gallbladder neck and continued around the gallbladder neck/cystic duct junction. There was marked edema in that area, and eventually the gallbladder neck/cystic duct junction and adjacent cystic artery were both identified, and in each case, 3 clips placed proximally, 1 distally, and the gallbladder neck/cystic duct were divided. The gallbladder was then dissected off the gallbladder bed using electrocautery. One additional vessel entering the gallbladder on the upper aspect of the gallbladder neck was also clipped 3 times proximally and divided. The gallbladder was then brought up to the epigastric trocar site with a specimen bag and eventually manipulated through the abdominal wall. The distal incision needed to be opened fairly large in order to allow removal of the specimen. At this point, the area of dissection was inspected. No bleeding or bile leaks were seen. A Gerardo-Diaz drain was taken through the right lateral trocar site. Initially, four sutures were placed into the epigastric trocar site, which is what would appear to be required to adequately close the fascial defect developed for evacuation of specimen. These were not yet tied and a trocar placed back into that area, and with the laparoscope in the epigastric site, the umbilical hernia was closed with a laparoscopic suture passer, placing 3 stitches of 0 Ethibond stitch orienting the closure in a transverse orientation. At that point, no further problems noted. Remaining trocars removed. The peritoneal cavity deflated and the fascial sutures tied. The skin at the umbilical site was closed with some 4-0 Vicryl skin stitch. The skin and subcutaneous tissue were packed open at the epigastric site so as to minimize chances of wound infection at that level. The patient was taken to the recovery room in satisfactory condition. Henry Barnes MD /[id number]
--- NOTE | 2016-09-16 12:17 | DISCH ---
FINAL DIAGNOSES: 1. Severe cholecystitis with fluid collection with associated localized peritonitis (sterile versus infected abscess). 2. Umbilical hernia. 3. Atrial fibrillation, on chronic anticoagulation. 4. History of cardiac ablation. 5. Postoperative congestive heart failure. 6. History of hypertension. 7. History of hyperlipidemia. 8. History of recurrent bronchitis. OPERATIVE PROCEDURE: Done on 09/06/2016; diagnostic laparoscopy with: 1. Cholecystectomy. 2. Drainage of pericholecystic fluid collection (abscess). 3. Umbilical hernia repair. HOSPITAL COURSE: This is a 60-year-old with a picture of acute cholecystitis to this atrial fibrillation is anticoagulated and after the anticoagulation it was reversed. The patient underwent a laparoscopic cholecystectomy and drainage of pericholecystic abscess and umbilical hernia repair on 09/06/2016. On postop day #1, he was noted to have some degree of congestive heart failure and this was treated medically by 09/08/2016, he was felt to be ready for discharge home. His hyperbilirubinemia noted preoperatively was corrected postoperatively and be sent home with his usual home medications plus Oktaha 5/325 mg 1 to 2 tabs q.4 hours p.r.n. pain and Lasix 20 mg daily. He will be following up with Batsheva Patel in [facility] next week.
== END 2016-09-08 11:52 | disposition home or self-care (01) | DRG 263 ==
LOC: JP.ED 18:08 → JP.MS 22:44
PROVIDERS: ADMIT Surgery; ATTEND Surgery
PROC: 0WQF4ZZ Repair Abdominal Wall, Percutaneous Endoscopic Approach (ICD-10-PCS; principal; 2016-09-06)
PROC: 0W9G4ZX Drainage of Peritoneal Cavity, Percutaneous Endoscopic Approach, Diagnostic (ICD-10-PCS; principal; 2016-09-06)
PROC: 0FT44ZZ Resection of Gallbladder, Percutaneous Endoscopic Approach (ICD-10-PCS; principal; 2016-09-06)
DX: K81.0 Acute cholecystitis (principal); K42.9 Umbilical hernia without obstruction or gangrene; Z79.01 Long term (current) use of anticoagulants; D68.8 Other specified coagulation defects; H54.7 Unspecified visual loss; Z79.82 Long term (current) use of aspirin; Z88.0 Allergy status to penicillin; I48.0 Paroxysmal atrial fibrillation; I11.0 Hypertensive heart disease with heart failure; I50.22 Chronic systolic (congestive) heart failure; R09.02 Hypoxemia
CPT/HCPCS: 36415; 74176; 76705; 80048; 80053; 81001; 83605; 83690; 83735; 83880; 84100; 84484; 85025; 85027; 85610; 85730; 86140; 87040; 87070; 87075; 87205; 88302; 88304; 93005; 94762; 96361; 96374; 96375; 99285-25; A9270-GY; J0694; J0780; J1100; J1170; J1940; J2405; J2704; J3010; J3430; J3490; J7042; J7050; J7120; S0073

== ENCOUNTER 2016-09-09 19:51 | Emergency (ER) | payer MEDICAID ==
[2016-09-09 20:05] VITALS: BP 126/88
[2016-09-09] MEDS ORDERED: HYDROmorphone 1 MG/ML Syringe IM ONE (20:49)
--- NOTE | 2016-09-09 20:50 | EDM.PDOC ---
[id number] 4d STOMACH PAIN Time Seen by Provider: 09/09/16 20:10 Source: Reports: Patient, Family History Limitations: Reports: No limitations - History of Present Illness INITIAL COMMENTS - FREE TEXT/NARRATIVE: 60-year-old male with abdominal pain after having a cholecystectomy 3 days ago. He is having a lot of discomfort today so his family brought him in to be seen. He is not running any fever, has had 3 small bowel movements today and does not feel distended. He has no nausea or vomiting. He took only one pain pill this morning, he has not taken any more because his sister is afraid he will get "addicted". Location: generalized Quality: Reports: ache, cramping Severity: moderate Associated Symptoms: Denies: chest pain, diarrhea, fever/chills, nausea/vomiting - Related Data Allergies/ADRs: Allergies Allergy/AdvReac Type Severity Reaction Status Date / Time Penicillins Allergy Cannot Verified 07/08/15 07:19 Remember Home Meds: Home Meds Aspirin [Adult Low Dose Aspirin EC] 81 mg PO DAILY 07/06/15 [History] Lisinopril [Zestril] 20 mg PO DAILY 07/06/15 [History] Triamcinolone Acetonide [Kenalog 0.1% Crm] 1 applic TOP BID 07/06/15 [History] Warfarin [Coumadin] 5 mg PO DAILY 07/06/15 [History] atorvaSTATin [Lipitor] 40 mg PO BEDTIME 07/06/15 [History] Amiodarone HCl 200 mg PO DAILY 09/04/16 [History] Carvedilol 6.25 mg PO BID 09/04/16 [History] Ranitidine HCl [Ranitidine] 150 mg PO BID 09/04/16 [History] Acetaminophen/HYDROcodone [Cosby 325-5 MG] 1 - 2 tab PO Q4H PRN #30 tablet 09/08 [Rx] Furosemide [Lasix] 20 mg PO DAILY #30 tablet 09/08/16 [Rx] Past Medical History HEENT History: Reports: Impaired vision Cardiovascular History: Reports: Afib, Arrhythmia, High cholesterol, Hypertension Respiratory History: Reports: Bronchitis, recurrent Genitourinary History: Reports: Renal calculus Hematologic History: Reports: Other (see below) Other Hematologic History: coumadin use, with current high INR Dermatologic History: Reports: Other (see below) Other Dermatologic History: rash on legs - Infectious Disease History Infectious Disease History: Reports: Measles - Past Surgical History HEENT Surgical History: Reports: None Cardiovascular Surgical History: Reports: Cardiac Ablation Respiratory Surgical History: Reports: None GI Surgical History: Reports: Cholecystectomy Social & Family History - Family History Family Medical History: Noncontributory - Tobacco Use Smoking Status *Q: Never Smoker Second Hand Smoke Exposure: No - Caffeine Use Caffeine Use: Reports: None - Recreational Drug Use Recreational Drug Use: No ED ROS GENERAL - Review of Systems Review Of Systems: See Below Constitutional: Denies: fever, chills, malaise Respiratory: Denies: Shortness of Breath Cardiovascular: Denies: Chest pain GI/Abdominal: Reports: Abdominal pain. Denies: Constipation, Diarrhea, Nausea, Vomiting : Reports: no symptoms Musculoskeletal: Reports: other (Lower extremities have edema) ED EXAM, GI/ABD - Physical Exam Exam: See Below Exam Limited By: No limitations General Appearance: alert, no apparent distress Eyes: bilateral: normal appearance Respiratory/Chest: no respiratory distress, lungs clear Cardiovascular: regular rate, rhythm GI/Abdominal: normal bowel sounds, tenderness (He does have diffuse tenderness to palpation), other (Surgical incisions look excellent) Extremities: pedal edema (1+ symmetric edema) Course - Vital Signs Last Recorded V/S: Last Vital Signs Temp 99.5 F 09/09/16 20:56 Pulse 86 09/09/16 20:56 Resp 16 09/09/16 20:56 BP 126/88 09/09/16 20:56 Pulse Ox 96 09/09/16 20:56 - Orders/Labs/Meds Orders: Active Orders 24 hr Category Date Time Status Abdomen 2V AP Flat Upright [CR] Stat Exams 09/09/16 20:24 Taken Meds: Medications Discontinued Medications Generic Name Dose Route Start Last Admin Trade Name Freq PRN Reason Stop Dose Admin Hydromorphone HCl 1 mg 09/09/16 20:49 09/09/16 21:02 Dilaudid IM 09/09/16 20:50 1 mg ONETIME ONE Administration - Re-Assessments/Exams Free Text/Narrative Re-Assessment/Exam: 09/09/16 20:49 A flat and upright x-ray was obtained and is normal without any evidence of ileus or obstruction. Patient was given 1 mg of Dilaudid IM for pain control and encouraged to take his pain medications as directed. He can return anytime if worsening such as fever, vomiting, or uncontrolled pain. Departure - Departure Time of Disposition: 21:22 Disposition: Home, Self-Care 01 Condition: good Clinical Impression: Abdominal pain Qualifiers: Abdominal location: generalized Qualified Code(s): R10.84 - Generalized abdominal pain Instructions: Abdominal Pain, Adult, [id number] Referrals: Yuriy Jackson PA [Primary Care Provider] - Forms: ED Department Discharge Care Plan Goals: Take all your prescribed medicines as needed. This includes pain medications. Increase activity and diet as tolerated, and return if worsening such as fever, vomiting, or uncontrolled pain. - My Orders Last 24 Hours: My Active Orders 09/09/16 20:24 Abdomen 2V AP Flat Upright [CR] Stat - Assessment/Plan Last 24 Hours: My Active Orders 09/09/16 20:24 Abdomen 2V AP Flat Upright [CR] Stat
--- NOTE | 2016-09-10 08:42 | CR ---
Abdomen. Findings: Surgical clips right upper quadrant. Central metallic density is not evident on the second view.
== END 2016-09-09 21:15 | disposition home or self-care (01) ==
LOC: JP.ED 19:51
DX: R10.84 Generalized abdominal pain (principal); I48.91 Unspecified atrial fibrillation; I10 Essential (primary) hypertension; E78.00 Pure hypercholesterolemia, unspecified; Z90.49 Acquired absence of other specified parts of digestive tract; Z79.01 Long term (current) use of anticoagulants; Z79.82 Long term (current) use of aspirin; Z79.899 Other long term (current) drug therapy; Z88.0 Allergy status to penicillin
CPT/HCPCS: 74020; 96372; 99284; J1170

== ENCOUNTER 2016-09-19 11:58 | Emergency (ER) | payer MEDICAID ==
[2016-09-19 12:17] VITALS: BP 120/65
--- NOTE | 2016-09-19 12:35 | EDM.PDOC ---
[id number] 4d LEGS SWOLLEN; SOB Time Seen by Provider: 09/19/16 12:20 Source of Information: Reports: Patient, Family History Limitations: Reports: No limitations - History of Present Illness INITIAL COMMENTS - FREE TEXT/NARRATIVE: 60-year-old male with peripheral edema, fatigue, insomnia does not feel he's healing well from his recent surgery. No fevers or chills. Postoperative check 2 days ago was reassuring, he was told to stop pain medications as they were making him nauseous. He had a cholecystectomy last week. He has known atrial fibrillation. Onset: unknown/unsure Severity: moderate Associated Symptoms: Reports: malaise, shortness of breath, weakness, other ( Insomnia). Denies: fever/chills, headaches Lower Abdominal Pain Score (Numeric/FACES): 3 - Related Data Allergies Allergy/AdvReac Type Severity Reaction Status Date / Time Penicillins Allergy Cannot Verified 07/08/15 07:19 Remember Home Meds: Home Meds Aspirin [Adult Low Dose Aspirin EC] 81 mg PO DAILY 07/06/15 [History] Lisinopril [Zestril] 20 mg PO DAILY 07/06/15 [History] Triamcinolone Acetonide [Kenalog 0.1% Crm] 1 applic TOP BID 07/06/15 [History] Warfarin [Coumadin] 5 mg PO DAILY 07/06/15 [History] atorvaSTATin [Lipitor] 40 mg PO BEDTIME 07/06/15 [History] Amiodarone HCl 200 mg PO DAILY 09/04/16 [History] Carvedilol 6.25 mg PO BID 09/04/16 [History] Ranitidine HCl [Ranitidine] 150 mg PO BID 09/04/16 [History] Furosemide [Lasix] 20 mg PO DAILY #30 tablet 09/08/16 [Rx] Past Medical History HEENT History: Reports: Impaired vision Cardiovascular History: Reports: Afib, Arrhythmia, High cholesterol, Hypertension Respiratory History: Reports: Bronchitis, recurrent Genitourinary History: Reports: Renal calculus Hematologic History: Reports: Other (see below) Other Hematologic History: coumadin use, with current high INR Dermatologic History: Reports: Other (see below) Other Dermatologic History: rash on legs - Infectious Disease History Infectious Disease History: Reports: Measles - Past Surgical History HEENT Surgical History: Reports: None Cardiovascular Surgical History: Reports: Cardiac Ablation Respiratory Surgical History: Reports: None GI Surgical History: Reports: Cholecystectomy Social & Family History - Family History Family Medical History: Noncontributory - Tobacco Use Smoking Status *Q: Never Smoker Second Hand Smoke Exposure: No - Caffeine Use Caffeine Use: Reports: None - Recreational Drug Use Recreational Drug Use: No ED ROS GENERAL - Review of Systems Review Of Systems: See Below Constitutional: Denies: fever, chills HEENT: Reports: No symptoms Respiratory: Reports: Shortness of Breath. Denies: Pleuritic Chest Pain Cardiovascular: Reports: Edema (Lower extremity). Denies: Chest pain GI/Abdominal: Denies: Abdominal pain, Distension, Nausea, Vomiting : Reports: no symptoms Skin: Reports: pallor Neurological: Reports: Weakness ED EXAM, GENERAL - Physical Exam Exam: See Below Exam Limited By: No limitations General Appearance: alert, no apparent distress Eye Exam: bilateral eye: normal inspection Neck: other (No JVD) Respiratory/Chest: no respiratory distress, lungs clear Cardiovascular: irregularly irregular GI/Abdominal: soft, non tender, other (Surgical incisions look excellent) Neurological: alert, oriented Psychiatric: depressed mood, flat affect Skin Exam: Warm, Dry Course - Vital Signs Last Recorded V/S: Last Vital Signs Temp 97.9 F 09/19/16 12:17 Pulse 112 H 09/19/16 12:17 Resp 16 09/19/16 12:17 BP 120/65 09/19/16 12:17 Pulse Ox 97 09/19/16 12:17 - Orders/Labs/Meds Labs: Laboratory Tests 09/19/16 09/19/16 Range/Units 12:35 12:35 WBC 8.5 (4.5-11.0) K/uL RBC 4.57 (4.30-5.90) M/uL Hgb 13.8 (12.0-15.0) g/dL Hct 42.8 (40.0-54.0) % MCV 94 (80-98) fL MCH 30 (27-31) pg MCHC 32 (32-36) % Plt Count 240 (150-400) K/uL Neut % (Auto) 73 H (36-66) % Lymph % (Auto) 14 L (24-44) % Mcmullen % (Auto) 11 H (2-6) % Eos % (Auto) 1 L (2-4) % Baso % (Auto) 1 (0-1) % Sodium 142 (140-148) mmol/L Potassium 3.8 (3.6-5.2) mmol/L Chloride 101 (100-108) mmol/L Carbon Dioxide 31 (21-32) mmol/L Anion Gap 10.3 (5.0-14.0) mmol/L BUN 26 H (7-18) mg/dL Creatinine 1.5 H (0.8-1.3) mg/dL Est Cr Clr Drug Dosing 51.30 mL/min Estimated GFR (MDRD) 48 L (>60) Glucose 99 (74-106) mg/dL Calcium 8.8 (8.5-10.1) mg/dL - Re-Assessments/Exams Free Text/Narrative Re-Assessment/Exam: 09/19/16 12:34 Patient's vitals reveal atrial fibrillation with a mild rapid ventricular response from 100 to 115. He is afebrile, his blood pressure is normal and his O2 saturations are 96% on room air. Two-view chest x-ray was obtained along with a BMP and CBC. 09/19/16 13:41 Two-view chest x-ray shows no significant CHF, labs were reassuring. Patient remained stable and asymptomatic while in the emergency room. I asked him to take one extra Lasix after noon for the next several days but no need for hospitalization at this time. Departure - Departure Time of Disposition: 13:58 Disposition: Home, Self-Care 01 Condition: good Clinical Impression: Peripheral edema, Nocturnal dyspnea Instructions: Shortness of Breath, [id number], Edema Referrals: PCP,None [Primary Care Provider] - Forms: ED Department Discharge Care Plan Goals: Continue regular medications but add one extra Lasix dose after your noon meal for the next 3 days. Recheck next week.
--- NOTE | 2016-09-19 13:15 | CR ---
Two-view chest Comparison: CT from 4 days prior There is a small right pleural effusion also demonstrated on the CT exam. There are no infiltrates. There is borderline cardiac enlargement. The vascular structures are within normal limits. Impression: 1. Small right pleural effusion unchanged in the prior CT. 2. No acute infiltrates.
== END 2016-09-19 13:58 | disposition home or self-care (01) ==
LOC: JP.ED 11:58
DX: R06.00 Dyspnea, unspecified (principal); R60.0 Localized edema; I48.91 Unspecified atrial fibrillation; E78.00 Pure hypercholesterolemia, unspecified; I10 Essential (primary) hypertension; Z79.899 Other long term (current) drug therapy; Z90.49 Acquired absence of other specified parts of digestive tract; Z79.82 Long term (current) use of aspirin; Z79.01 Long term (current) use of anticoagulants; Z88.0 Allergy status to penicillin
CPT/HCPCS: 36415; 71020; 71020-26; 80048; 85025; 99285

== ENCOUNTER 2016-09-25 18:43 | Inpatient (IN) | payer MEDICAID ==
--- NOTE | 2016-09-25 19:16 | EDM.PDOC ---
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 Complicated by postoperative pain seen in emergency on the and by edema of his legs seen in emergency on the . Has been struggling with pain and shortness of breath since surgery but feels he is slowly improving and was better yesterday. However since this morning very short of breath very exhausted, lower abdominal pain. He also feels pressure and throbbing in the upper abdomen but this is not painful. Appetite is decreased compared to yesterday he takes his full energy to move around the house. No nausea no vomiting No fever No diarrhea or urinary troubles. He was unable to negotiate the stairs or ramps again to the emergency room and needed a wheelchair. Otherwise she's been getting around without assistance very exhausted compared to usual. The swelling in his legs has actually improved. He sleeps with the legs elevated. Seen in the clinic yesterday, had blood test done, advised by phone to decrease his furosemide which was at 30 mg in morning and 20 mg in the afternoon to just to the morning dose which he did today. No chest pain, some palpitations. No history of heart attack but he had atrial fibrillation and underwent ablation in 2013 which worked for a while until this year when he said persistent atrial fibrillation again. He is on Coumadin because of that. Poor sleep due to discomfort restlessness shortness of breath has to get up and move around. Only had about 4 hours of sleep last night at most. Middle Abdominal Pain Score (Numeric/FACES): 4 Right Shoulder Pain Score (Numeric/FACES): 7 - Related Data Allergies Allergy/AdvReac Type Severity Reaction Status Date / Time Penicillins Allergy Cannot Verified 07/08/15 07:19 Remember Home Meds: Home Meds Warfarin [Coumadin] 5 mg PO DAILY 07/06/15 [History] atorvaSTATin [Lipitor] 40 mg PO BEDTIME 07/06/15 [History] Amiodarone [Cordarone] 200 mg PO DAILY 09/25/16 [History] Aspirin [Halfprin] 81 mg PO DAILY 09/25/16 [History] Carvedilol [Carvedilol] 6.25 mg PO BID 09/25/16 [History] Furosemide [Lasix] 30 mg PO DAILY 09/25/16 [History] Lisinopril [Prinivil] 20 mg PO DAILY 09/25/16 [History] Triamcinolone Acetonide [Kenalog 0.1% Crm] 0 gm TOP DAILY 09/25/16 [History] Past Medical History HEENT History: Reports: Impaired vision Cardiovascular History: Reports: Afib, Arrhythmia, Heart Failure, High cholesterol, Hypertension, Other (see below) Other Cardiovascular History: edema Respiratory History: Reports: Bronchitis, recurrent Gastrointestinal History: Reports: Cholelithiasis Genitourinary History: Reports: Renal calculus Hematologic History: Reports: Other (see below) Other Hematologic History: coumadin use, with current high INR Dermatologic History: Reports: Other (see below) Other Dermatologic History: rash on legs - Infectious Disease History Infectious Disease History: Reports: Measles - Past Surgical History HEENT Surgical History: Reports: None Cardiovascular Surgical History: Reports: Cardiac Ablation Other Cardiovascular Surgeries/Procedures: Jun 2013 Respiratory Surgical History: Reports: None GI Surgical History: Reports: Cholecystectomy Social & Family History - Family History Family Medical History: Noncontributory - Tobacco Use Smoking Status *Q: Never Smoker Second Hand Smoke Exposure: No - Caffeine Use Caffeine Use: Reports: None - Recreational Drug Use Recreational Drug Use: No ED ROS GENERAL - Review of Systems Review Of Systems: See Below Constitutional: Reports: malaise, weakness, fatigue, decreased appetite. Denies : fever, chills, diaphoresis HEENT: Reports: No symptoms Respiratory: Reports: Shortness of Breath. Denies: Pleuritic Chest Pain, Cough , Sputum Cardiovascular: Reports: Dyspnea on exertion, Edema (Mild), Palpitations. Denies: Chest pain, Blood pressure problem, Lightheadedness, Syncope Endocrine: Reports: fatigue GI/Abdominal: Reports: Abdominal pain (Across her lower abdomen), Decreased appetite. Denies: Diarrhea, Difficulty swallowing, Distension, Melena, Nausea, Vomiting : Reports: no symptoms Musculoskeletal: Reports: no symptoms Skin: Reports: no symptoms, change in color (Sister reports that he looks very pale) Neurological: Reports: Weakness. Denies: Confusion, Headache, Paresthesia, Syncope, Change in Speech Psychiatric: Reports: No symptoms Hematologic/Lymphatic: Reports: no symptoms Immunologic: Reports: no symptoms ED EXAM, GENERAL - Physical Exam Exam: See Below Exam Limited By: No limitations General Appearance: alert, mild distress, other (Appears quite tired, does get short of breath with talking but is able to speak full sentences, tachycardia, atrial fibrillation on the monitor with a rapid ventricular rate, otherwise vital signs are normal) Eye Exam: bilateral eye: EOMI, normal inspection Ears: normal external exam, normal canal, hearing grossly normal Nose: normal inspection, normal mucosa Throat/Mouth: Normal inspection, Normal lips, Normal oropharynx, Normal voice, No airway compromise Head: normocephalic Neck: normal inspection, supple, non-tender, other (No JVD distention). No: carotid bruit, lymphadenopathy (R), lymphadenopathy (L) Respiratory/Chest: no accessory muscle use, chest non-tender, rales (At the bases), other (Slightly increased respiratory rate). No: rhonchi Cardiovascular: normal peripheral pulses, tachycardia, irregularly irregular GI/Abdominal: normal bowel sounds, soft, no distention, tender (Mild diffuse), other (Postsurgical laparoscopy scars). No: guarding, hernia, mass (Male) Exam: No hernia Back Exam: normal inspection Extremities: pedal edema (Very mild, some scarring from previous excoriations but no acute signs of infection) Neurological: alert, oriented, no motor/sensory deficits Psychiatric: anxious, flat affect Skin Exam: Warm, Dry, Intact, Other (Generalized pallor) Lymphatic: no adenopathy Course - Vital Signs Last Recorded V/S: Last Vital Signs Temp 36.8 C 09/25/16 18:55 Pulse 124 H 09/25/16 20:14 Resp 24 H 09/25/16 20:14 BP 129/89 09/25/16 21:14 Pulse Ox 99 09/25/16 20:14 - Orders/Labs/Meds Orders: Active Orders 24 hr Category Date Time Status EKG Documentation Completion [RC] ASDIRECTED Care 05/02/17 19:32 Active Chest 2V [CR] Stat Exams 09/25/16 19:31 Taken Chest wo Cont [CT] Stat Exams 09/25/16 21:05 Taken CALCITONIN [REF] Urgent Lab 09/25/16 19:44 Received Sodium Chloride 0.9% [Saline Flush] Med 09/25/16 19:31 Active 10 ml FLUSH ASDIRECTED PRN Saline Lock Insert [OM.PC] Stat Oth 09/25/16 19:31 Ordered EKG 12 Lead [EK] Routine Ther 09/25/16 19:31 Ordered Medication Orders Amiodarone HCl (Cordarone) 200 mg PO DAILY [facility] Aspirin (Halfprin) 81 mg PO DAILY [facility] Carvedilol (Coreg) 6.25 mg PO BID [facility] Sodium Chloride (Normal Saline) 1,000 mls @ 125 mls/hr IV ASDIRECTED RADHA Last Admin: 09/25/16 23:03 Dose: 125 mls/hr Lisinopril (Prinivil) 20 mg PO DAILY [facility] Non-Formulary Medication (Atorvastatin [Lipitor]) 40 mg PO BEDTIME [facility] Sodium Chloride (Saline Flush) 10 ml FLUSH ASDIRECTED PRN PRN Reason: Keep Vein Open Last Admin: 09/25/16 20:05 Dose: 10 ml Warfarin Sodium (Coumadin) 5 mg PO DAILY [facility] Labs: Laboratory Tests 09/25/16 09/25/16 09/25/16 Range/Units 19:44 19:44 22:16 WBC 6.8 (4.5-11.0) K/uL RBC 4.41 (4.30-5.90) M/uL Hgb 13.0 (12.0-15.0) g/dL Hct 41.6 (40.0-54.0) % MCV 94 (80-98) fL MCH 30 (27-31) pg MCHC 31 L (32-36) % Plt Count 276 (150-400) K/uL Sodium 146 (140-148) mmol/L Potassium 4.1 (3.6-5.2) mmol/L Chloride 108 (100-108) mmol/L Carbon Dioxide 28 (21-32) mmol/L Anion Gap 10.4 (5.0-14.0) mmol/L BUN 34 H (7-18) mg/dL Creatinine 1.7 H (0.8-1.3) mg/dL Est Cr Clr Drug Dosing 43.74 mL/min Estimated GFR (MDRD) 41 L (>60) Glucose 104 (74-106) mg/dL Calcium 8.3 L (8.5-10.1) mg/dL Total Bilirubin 1.0 (0.2-1.0) mg/dL AST 37 (15-37) U/L ALT 50 (12-78) U/L Alkaline Phosphatase 87 (46-116) U/L Troponin I 0.022 (0.000-0.056) ng/mL [id number] Pept 7825 H (5-125) pg/mL Total Protein 7.1 (6.4-8.2) g/dL Albumin 3.1 L (3.4-5.0) g/dL Globulin 4.0 H (2.3-3.5) g/dL Albumin/Globulin Ratio 0.8 L (1.2-2.2) Lipase 312 (73-393) U/L Urine Color Yellow Urine Appearance Slightly cloudy Urine pH 5.0 (4.5-8.0) Ur Specific [place] 1.020 (1.008-1.030) Urine Protein Negative (NEGATIVE) mg/dL Urine Glucose (UA) Normal (NEGATIVE) mg/dL Urine Ketones Negative (NEGATIVE) mg/dL Urine Occult Blood Negative (NEGATIVE) Urine Nitrite Negative (NEGAITVE) Urine Bilirubin Negative (NEGATIVE) Urine Urobilinogen Normal (NORMAL) mg/dL Ur Leukocyte Esterase Negative (NEGATIVE) Urine RBC 0-5 (0-5) Urine WBC 0-5 (0-5) Ur Epithelial Cells Rare Amorphous Sediment Moderate Urine Bacteria Not seen Urine Mucus Moderate Urine Other Meds: Medications Generic Name Dose Route Start Last Admin Trade Name Freq PRN Reason Stop Dose Admin Amiodarone HCl 200 mg 09/26/16 09:00 Cordarone PO DAILY [facility] Aspirin 81 mg 09/26/16 09:00 Halfprin PO DAILY [facility] Carvedilol 6.25 mg 09/26/16 09:00 Coreg PO BID [facility] Sodium Chloride 1,000 mls @ 125 mls/hr 09/25/16 23:00 09/25/16 23:03 Normal Saline IV 125 mls/hr ASDIRECTED RADHA Administration Lisinopril 20 mg 09/26/16 09:00 Prinivil PO DAILY [facility] Non-Formulary Medication 40 mg 09/26/16 21:00 Atorvastatin [Lipitor] PO BEDTIME [facility] Sodium Chloride 10 ml 09/25/16 19:31 09/25/16 20:05 Saline Flush FLUSH 10 ml ASDIRECTED PRN Administration Keep Vein Open Warfarin Sodium 5 mg 09/26/16 09:00 Coumadin PO DAILY [facility] Discontinued Medications Generic Name Dose Route Start Last Admin Trade Name Osminq PRN Reason Stop Dose Admin Fentanyl 50 mcg 09/25/16 22:44 09/25/16 22:57 Sublimaze IVPUSH 09/25/16 22:45 50 mcg ONETIME ONE Administration Furosemide 40 mg 09/25/16 20:53 09/25/16 21:14 Lasix IVPUSH 09/25/16 20:54 40 mg ONETIME ONE Administration Levofloxacin/Dextrose 500 mg/ 100 mls @ 100 mls/hr 09/25/16 22:15 Premix IV 09/25/16 23:14 ONETIME ONE Ceftriaxone Sodium 1 gm/ 50 mls @ 100 mls/hr 09/25/16 22:15 09/25/16 23:11 Sodium Chloride IV 09/25/16 22:44 100 mls/hr ONETIME ONE Administration - Re-Assessments/Exams Free Text/Narrative Re-Assessment/Exam: 09/25/16 19:37 60-year-old male, nearly 3 weeks post laparoscopic cholecystectomy for cholecystitis, with history of chronic atrial fibrillation and CHF, has had continuing abdominal pain and increased shortness of breath since surgery. Differential diagnosis includes CHF, pulmonary embolism, myocardial infarction. Pneumonia among others. He is able to speak full sentences at rest and his vital signs are stable. Investigations done WBC 6.8 hemoglobin 13.0, nitrites essentially normal creatinine 1.7 compared to 1.5 a month ago, BNP 7825 versus 4357 a month ago Troponin normal Chest x-ray shows some interstitial changes and persisting right pleural infiltrate compared to previous. EKG is interpreted by the computer as sinus tachycardia but my interpretation shows atrial fibrillation with fusion complexes, overall rate 115, essentially unchanged from August a month ago, but the rate is a bit faster. No signs of acute ischemia. Because of his significant fatigue, and shortness of breath, CT scan done. Interpretation by radiologist as bilateral pleural effusions with atelectasis and bibasilar consolidations worse on the right which are suggestive of pneumonia. Because of his elevated BNP and probable C. chronic CHF, furosemide 40 mg IV given with only mild urinary output. Ceftriaxone 1 g and levofloxacin 5 mg IV ordered Physician occupational therapist contacted for inpatient admission Fentanyl 50 mcg IV for abdominal pain 09/25/16 23:14 Departure - Departure Time of Disposition: 22:16 Disposition: Admitted As Inpatient 67 Condition: good Clinical Impression: Post-operative state, Chronic atrial fibrillation Chronic CHF (congestive heart failure) Qualifiers: Congestive heart failure type: unspecified congestive heart failure type Qualified Code(s): I50.9 - Heart failure, unspecified Pneumonia, unspecified organism Qualifiers: Pneumonia type: due to unspecified organism Laterality: bilateral Lung location : unspecified part of lung Qualified Code(s): J18.9 - Pneumonia, unspecified organism - My Orders Last 24 Hours: My Active Orders 09/25/16 19:31 Chest 2V [CR] Stat Sodium Chloride 0.9% [Saline Flush] 10 ml FLUSH ASDIRECTED PRN Saline Lock Insert [OM.PC] Stat EKG 12 Lead [EK] Routine 09/25/16 19:32 EKG Documentation Completion [RC] ASDIRECTED 09/25/16 19:44 CALCITONIN [REF] Urgent 09/25/16 21:05 Chest wo Cont [CT] Stat - Assessment/Plan Last 24 Hours: My Active Orders 09/25/16 19:31 Chest 2V [CR] Stat Sodium Chloride 0.9% [Saline Flush] 10 ml FLUSH ASDIRECTED PRN Saline Lock Insert [OM.PC] Stat EKG 12 Lead [EK] Routine 09/25/16 19:32 EKG Documentation Completion [RC] ASDIRECTED 09/25/16 19:44 CALCITONIN [REF] Urgent 09/25/16 21:05 Chest wo Cont [CT] Stat
[2016-09-25] MEDS ORDERED: Sodium Chloride 0.9% 10 ML Syringe FLUSH PRN (19:31)
[2016-09-25] MEDS ORDERED: Furosemide 40 MG/4 ML VIAL IVPUSH ONE (20:53)
[2016-09-25] MEDS ORDERED: cefTRIAXone 1 GM in Sodium Chloride 0.9% 50 ML IV ONE (22:15)
[2016-09-25] MEDS ORDERED: Levofloxacin/Dextrose 5%-Water 500 MG in Premix Bag 1 BAG IV ONE (22:15)
[2016-09-25] MEDS ORDERED: fentaNYL 100 MCG/2 ML SDV IVPUSH ONE (22:44)
[2016-09-25] MEDS: Sodium Chloride 0.9% 1,000 ML IV SCH (23:03)
[2016-09-26] MEDS: HYDROmorphone 0.5 MG/0.5 ML Syringe IVPUSH PRN ×2 (00:38→04:13)
--- NOTE | 2016-09-26 00:58 | HP ---
IDENTIFYING DATA: Domenic Leger is a 60-year-old single male from [place], [place]. CHIEF COMPLAINT: Weakness and pain. HISTORY OF PRESENT ILLNESS: This adult male has noted history of recurrent atrial fibrillation with cardiomyopathy. He has had previous cardio ablative procedures with good response noted though recently he has had recurring episodes of atrial fibrillation requiring Coumadin anticoagulant therapy. He was tentatively scheduled for cardiac studding and repeated attempts at atrial ablation for management of his atrial fibrillation earlier this month; however, he presented to the emergency room with complaints of upper abdominal pain and was found to have evidence of acute cholecystitis on studies. He underwent laparoscopic cholecystectomy approximately three weeks ago and was discharged home after two- day hospital stay. Since that time, he notes his appetite has been diminished. He has had anorexia. Denies significant nausea, emesis, hematemesis, diarrhea, melena, or hematochezia. He has had ongoing pain and waxing and waning in the right upper quadrant as well as development of right shoulder and scapular pain this afternoon. He has had no fevers, chills, or purulent sputum production. General malaise and fatigue is noted as well as occasional cardiac subjective palpitations. He denies angina-like pain, sputum production, or syncope. He requires assistance with ambulation secondary to generalized weakness. ALLERGIES: REPORTED TO PENICILLIN. CURRENT MEDICATIONS: Coumadin 5 mg daily, Atorvastatin 40 mg daily, amiodarone 200 mg daily, aspirin 81 mg daily, Carvedilol 6.25 mg b.i.d., furosemide 30 mg a.m. and 20 mg at noon reduced to 20 mg daily, earlier today by direction of his clinic caregiver, lisinopril 20 mg daily, triamcinolone topically p.r.n. for rash. HABITS: User of chewing tobacco, nonsmoker, caffeine intake, and is less than one cup of coffee daily. No routine use of alcohol. IMMUNIZATIONS: Tetanus administered in 2015. SOCIAL HISTORY: Residing independently. Had been caring for his elderly now mother until her earlier this year. He typically performs ADLs independently. FAMILY HISTORY: No familial history of acute infectious diseases in the recent past. REVIEW OF SYSTEMS: NEUROLOGIC: No history of stroke, seizures, or headaches. Glasses are worn. No hearing loss. CARDIAC: As above. Hypertension and atrial fibrillation. No history of ischemic heart disease or diabetes. He does have a history of hyperglycemia. RESPIRATORY: Denies cough, sputum production, COPD, history of tuberculosis, general fatigability, no shortness of breath at rest. No history of sleep apnea. GI: As above. : As above. No nocturia. MUSCULOSKELETAL: Without arthralgias. PHYSICAL EXAMINATION: GENERAL: Appearance is that of a weakened adult male currently resting comfortably in his hospital bed. VITAL SIGNS: Temperature 36.8, pulse 124 and irregular, atrial fibrillation by cardiac monitoring, respiratory rate 24, blood pressure 129/89, O2 sats 99% on room air. HEENT: Hearing is intact with normal canals. Sclerae anicteric. Pupils equal and reactive. No nasal congestion. No oropharyngeal lesions. NECK: No adenopathy or thyromegaly. Brisk irregular carotid pulses. No stridor. LUNGS: Today are clear, non tachypneic, no wheezes or rales heard. No retractions. HEART: Irregular with atrial fibrillation by cardiac monitoring. No murmurs or gallops noted. ABDOMEN: Mild tenderness in the right upper quadrant without guarding, rebound, or referred pain. No CVA tenderness. No other organomegaly is evident. Good femoral pulses. Active bowel sounds. No abdominal bruits noted. EXTREMITIES: Moderate pitting edema of the distal tibial face and ankles bilaterally. Palpable pulses are intact. LABORATORY DATA: WBC 6.8, hemoglobin 13, hematocrit 41.6, platelet count 276,000. Sodium 146, potassium 4.1, BUN 34, creatinine 1.7, glucose 104, calcium 8.3, alkaline phosphatase 87, AST 37. BNP elevated at 7825. Troponin 0.022. Urinalysis unremarkable microscopic dipstick portions. Chest CT obtained to exclude the possibility of pulmonary emboli. No PE evident. Suggestion of right lower lobe pneumonia by CT imaging. IMPRESSION: 1. Generalized weakness and right upper quadrant and shoulder pain with recent laparoscopic cholecystectomy for reasons of acute cholecystitis. 2. Shortness of breath and diminished exercise tolerance likely secondary to congestive heart failure exacerbation. 3. Reported right lower lobe pneumonia on chest CT. 4. Chronic atrial fibrillation with previous cardio ablative treatment. 5. Hypertension. 6. Chronic chewing tobacco use. PLAN: The patient is admitted to telemetry on medical floor for continued monitoring. Furosemide was held. Creatinine has risen slightly since last hospital review earlier this week. We will provide IV fluids in an effort to increase hydration, provide analgesics on a p.r.n. basis. Antibiotic therapy has been initiated with Levaquin and ceftriaxone combination. Blood and urine cultures have been ordered by the ER staff. Encourage assistance with ambulation, low-sodium diet. We will provide IV analgesics in the form of p.r.n. Dilaudid if necessary for pain. Followup BMP and INR in a.m. are requested. Full code status will be instituted. Leonard Loyd MD /[id number]
[2016-09-26] MEDS: Ondansetron 4 MG/2 ML SDV IVPUSH PRN ×4 (06:19→19:12)
[2016-09-26] MEDS: Sodium Chloride 0.9% 1,000 ML IV SCH ×3 (07:56→22:43)
--- NOTE | 2016-09-26 08:29 | PN ---
DATE OF SERVICE: 09/26/2016 SUBJECTIVE: A 60-year-old male with a noted history of recent cholecystectomy for reasons of acute cholecystitis, was admitted yesterday in the late evening hours with complaints of general fatigue, malaise as well as right upper quadrant abdominal pain and right shoulder pain. CT imaging of the chest was obtained to exclude the possibility of pulmonary emboli. Suggestion of a pneumonia was reported by Radiology review with broad-spectrum antibiotics initiated. Domenic states pain through the night, responded to administration of p.r.n. Dilaudid. However, he awoke at 0630 this morning with nausea and recurrent emesis. He has had no hematemesis and no fevers or chills noted. OBJECTIVE: VITAL SIGNS: Temperature 36.3, pulse 104, O2 saturations 95% on room air. Blood pressure 113/88, respiratory rate 16. Atrial fibrillation with mildly tachycardic rate of 110 noted by telemetry monitoring. NECK: Brisk irregular carotid pulses. No bruits. LUNGS: Today are clear and non-tachypneic. HEART: Irregularly irregular without murmurs. ABDOMEN: Active sounds, nondistended, mild tenderness at the right upper quadrant. No guarding, rebound, or referred pain. EXTREMITIES: Currently notes no right shoulder pain. LABORATORY DATA: Followup labs this a.m., INR and Coumadin anticoagulant therapy is supratherapeutic at 5.95. Sodium 145, potassium 4.2, BUN 33, and creatinine 1.5. IMPRESSION AND PLAN: 1. Complaints of general fatigue and poor exercise tolerance. Likely secondary to underlying cardiomyopathy and accompanying atrial fibrillation. Continue to monitor on telemetry services. Maintain a cardiac regimen. Engage in physical therapy. Evaluation and treatment program for general weakness. 2. Nausea with right upper quadrant and right shoulder pain. May be secondary to suspected right lower lobe pneumonia. To exclude the possibility of perioperative complications at his cholecystectomy site, ultrasound is requested today. We will continue to provide p.r.n. Dilaudid as well as Zofran for nausea. Leonard Loyd MD /[id number]
[2016-09-26] MEDS: Carvedilol 6.25 MG Tab PO SCH ×2 (09:08→18:15)
[2016-09-26] MEDS: Lisinopril 20 MG Tab PO SCH (09:08)
[2016-09-26] MEDS: Aspirin 81 MG Tab.EC PO SCH (09:08)
[2016-09-26] MEDS: Amiodarone 200 MG Tab PO SCH (09:08)
[2016-09-26] MEDS: Pantoprazole 40 MG Vial IVPUSH SCH (09:09)
--- NOTE | 2016-09-26 09:50 | CR ---
Mild cardiomegaly. Small pleural effusion right lung base. Trace pleural effusion left lung base. Anaya zy densities within the bilateral lung bases may indicate atelectasis versus infiltrate.
--- NOTE | 2016-09-26 09:56 | US ---
Liver appears homogeneous. Portal vein is patent. Gallbladder is removed. No focal fluid collection with the gallbladder fossa. IVC is patent. Common bile duct measures 4 mm. Right kidney 11.1 cm. No ascites fluid. Visualized portion of the pancreas is unremarkable. No intrahepatic biliary ductal di latation. Impression: 1. Status post cholecystectomy. No focal fluid collection.
[2016-09-26] MEDS ORDERED: Warfarin 5 MG Tab PO SCH (13:00)
[2016-09-26] MEDS: atorvaSTATin 20 MG Tab PO SCH (21:02)
[2016-09-26] MEDS: Levofloxacin 500 MG Tab PO SCH (21:02)
[2016-09-26] MEDS ORDERED: Albuterol 0.083% 2.5 MG/3 ML Neb Soln NEB PRN (21:12)
--- NOTE | 2016-09-26 21:49 | PCM.SN ---
- Free Text/Narrative Note: time: call from [address] [place] [address], request nebulizer for shortness of breath with activity. oxygen sat at >90% a; shortness of breath with activity p; albuterol nebulizer premix every 4 hours as needed for shortness of breath or wheezing.
[2016-09-26] MEDS ORDERED: cefTRIAXone 1 GM in Sodium Chloride 0.9% 50 ML IV SCH (23:00)
[2016-09-27] MEDS ORDERED: Sodium Chloride 0.9% 1,000 ML IV SCH (01:10)
[2016-09-27] MEDS ORDERED: Norepinephrine 4 MG in Dextrose 5% in Water 246 ML IV SCH ×2 (01:15)
[2016-09-27] MEDS: LORazepam 2 MG/ML MDV IVPUSH PRN ×2 (01:46→21:29)
[2016-09-27] MEDS ORDERED: Sodium Chloride 0.9% 500 ML IV ONE ×2 (02:08→05:40)
[2016-09-27] MEDS: HYDROmorphone 0.5 MG/0.5 ML Syringe IVPUSH PRN (05:29)
[2016-09-27] MEDS ORDERED: Phytonadione 5 MG in Sodium Chloride 0.9% 50 ML IV ONE ×2 (06:19→08:00)
[2016-09-27] MEDS: Carvedilol 6.25 MG Tab PO SCH (07:34)
[2016-09-27] MEDS: Aspirin 81 MG Tab.EC PO SCH (08:19)
[2016-09-27] MEDS: Amiodarone 200 MG Tab PO SCH (08:19)
[2016-09-27] MEDS: Pantoprazole 40 MG Vial IVPUSH SCH (08:20)
[2016-09-27] MEDS: Lisinopril 20 MG Tab PO SCH (08:20)
[2016-09-27] MEDS: Sodium Chloride 0.9% 1,000 ML IV SCH ×3 (10:30→17:15)
--- NOTE | 2016-09-27 12:52 | PCM.PN ---
- General Info Date of Service: 09/27/16 Functional Status: Reports: pain controlled, urinating - Review of Systems General: Reports: Fever, Weakness. Denies: Chills Pulmonary: Reports: shortness of breath, cough. Denies: pleuritic chest pain, sputum, wheezing Cardiovascular: Reports: Dyspnea on Exertion. Denies: Chest Pain, Palpitations , Orthopnea, PND Gastrointestinal: Reports: No symptoms Systems Review Comment:: This patient is a 60-year-old gentleman who was admitted [address] Loyd with progressive shortness of breath, weakness, fever, and very to pneumonia. CT scan showed evidence of bibasilar infiltrates with associated pleural effusions. He has been started on IV antibiotics with levofloxacin and Rocephin. Early this morning had some ongoing difficulty with lower blood pressures and increased shortness of breath, shortness of breath responded to nebulizer treatments and blood pressure is improved following fluid boluses. - Patient Data Vitals - most recent: Last Vital Signs Temp 96.2 F 09/27/16 12:42 Pulse 10 L 09/27/16 12:42 Resp 18 09/27/16 12:42 BP 83/69 L 09/27/16 12:42 Pulse Ox 98 09/27/16 12:42 Weight - most recent: 182 lb 12.8 oz I&O - last 24 hours: Intake & Output 09/26/16 09/27/16 09/27/16 22:59 06:59 14:59 Intake Total 1670 2667 100 Output Total 200 125 Balance 1470 2542 100 Lab Results last 24 hrs: Laboratory Results - last 24 hr 09/27/16 09/27/16 09/27/16 Range/Units 05:15 05:15 05:15 WBC 7.5 (4.5-11.0) K/uL RBC 4.28 L (4.30-5.90) M/uL Hgb 12.8 (12.0-15.0) g/dL Hct 41.0 (40.0-54.0) % MCV 96 (80-98) fL MCH 30 (27-31) pg MCHC 31 L (32-36) % Plt Count 236 (150-400) K/uL Neut % (Auto) 70 H (36-66) % Lymph % (Auto) 15 L (24-44) % [place] % (Auto) 12 H (2-6) % Eos % (Auto) 2 (2-4) % Baso % (Auto) 1 (0-1) % PT > 100.0 H (9.5-12.0) sec INR (0.80-1.20) Sodium 146 (140-148) mmol/L Potassium 4.4 (3.6-5.2) mmol/L Chloride 112 H (100-108) mmol/L Carbon Dioxide 26 (21-32) mmol/L Anion Gap 12.4 (5.0-14.0) mmol/L BUN 32 H (7-18) mg/dL Creatinine 1.4 H (0.8-1.3) mg/dL Est Cr Clr Drug Dosing 52.98 mL/min Estimated GFR (MDRD) 52 L (>60) Glucose 90 (74-106) mg/dL Calcium 8.0 L (8.5-10.1) mg/dL Med Orders - Current: Current Medications Albuterol (Proventil Neb Soln) 2.5 mg NEB Q4H PRN PRN Reason: Shortness of Breath Last Admin: 09/26/16 21:56 Dose: 2.5 mg Amiodarone HCl (Cordarone) 200 mg PO DAILY [facility] Last Admin: 09/27/16 08:19 Dose: 200 mg Aspirin (Halfprin) 81 mg PO DAILY [facility] Last Admin: 09/27/16 08:19 Dose: 81 mg Atorvastatin Calcium (Lipitor) 40 mg PO BEDTIME [facility] Last Admin: 09/26/16 21:02 Dose: 40 mg Carvedilol (Coreg) 6.25 mg PO BIDMEALS [facility] Last Admin: 09/27/16 07:34 Dose: 6.25 mg Hydromorphone HCl (Dilaudid) 0.5 mg IVPUSH Q2H PRN PRN Reason: Pain Last Admin: 09/27/16 05:29 Dose: 0.5 mg Ceftriaxone Sodium 1 gm/ (Sodium Chloride) 50 mls @ 100 mls/hr IV Q24H [facility] Last Admin: 09/26/16 22:39 Dose: 100 mls/hr Sodium Chloride (Normal Saline) 1,000 mls @ 250 mls/hr IV ASDIRECTED [facility] Stop: 09/27/16 14:31 Last Admin: 09/27/16 10:30 Dose: 250 mls/hr Levofloxacin (Levaquin) 500 mg PO Q24H [facility] Last Admin: 09/26/16 21:02 Dose: 500 mg Lisinopril (Prinivil) 20 mg PO DAILY [facility] Last Admin: 09/27/16 08:20 Dose: 20 mg Lorazepam (Ativan) 0.5 - 1 mg IVPUSH Q2H PRN PRN Reason: Anxiety Last Admin: 09/27/16 01:46 Dose: 0.5 mg Ondansetron HCl (Zofran) 4 mg IVPUSH Q4H PRN PRN Reason: Nausea/Vomiting Last Admin: 09/26/16 19:12 Dose: 4 mg Pantoprazole Sodium (Protonix) 40 mg PO ACBREAKFAST [facility] Pneumococcal Polyvalent Vaccine (Pneumovax 23) 0.5 ml IM .ONCE ONE Stop: 09/28/16 14:01 Sodium Chloride (Saline Flush) 10 ml FLUSH ASDIRECTED PRN PRN Reason: Keep Vein Open Last Admin: 09/25/16 20:05 Dose: 10 ml Discontinued Medications Fentanyl (Sublimaze) 50 mcg IVPUSH ONETIME ONE Stop: 09/25/16 22:45 Last Admin: 09/25/16 22:57 Dose: 50 mcg Furosemide (Lasix) 40 mg IVPUSH ONETIME ONE Stop: 09/25/16 20:54 Last Admin: 09/25/16 21:14 Dose: 40 mg Levofloxacin/Dextrose 500 mg/ (Premix) 100 mls @ 100 mls/hr IV ONETIME ONE Stop: 09/25/16 23:14 Last Admin: 09/25/16 23:46 Dose: 100 mls/hr Ceftriaxone Sodium 1 gm/ (Sodium Chloride) 50 mls @ 100 mls/hr IV ONETIME ONE Stop: 09/25/16 22:44 Last Admin: 09/25/16 23:11 Dose: 100 mls/hr Sodium Chloride (Normal Saline) 1,000 mls @ 125 mls/hr IV ASDIRECTED [facility] Last Admin: 09/26/16 22:43 Dose: 125 mls/hr Sodium Chloride (Normal Saline) 500 mls @ 999 mls/hr IV .BOLUS ONE Stop: 09/27/16 02:38 Last Admin: 09/27/16 02:19 Dose: 999 mls/hr Sodium Chloride (Normal Saline) 500 mls @ 500 mls/hr IV .BOLUS ONE Stop: 09/27/16 06:39 Last Admin: 09/27/16 05:47 Dose: 500 mls/hr Phytonadione 5 mg/ Sodium (Chloride) 50.5 mls @ 100 mls/hr IV NOW ONE Stop: 09/27/16 08:30 Last Admin: 09/27/16 07:33 Dose: 100 mls/hr Pantoprazole Sodium (Protonix Iv) 40 mg IVPUSH Q24H [facility] Last Admin: 09/27/16 08:20 Dose: 40 mg Warfarin Sodium (Coumadin) 5 mg PO DAILY@1300 [facility] - Exam Quality Assessment: supplemental oxygen, DVT prophylaxis General: alert, oriented, cooperative, mild distress Lungs: Clear to auscultation, Normal respiratory effort, Rales. No: Rhonchi, Wheezing Cardiovascular: Regular Rate, Regular Rhythm, No Murmurs Abdomen: bowel sounds present, soft, no tenderness, no distension Skin: warm, dry, intact - Problem List Review Problem List Initiated/Reviewed/Updated: Yes - My Orders Last 24 Hours: My Active Orders 09/27/16 10:30 Sodium Chloride 0.9% [Normal Saline] 1,000 ml IV ASDIRECTED 09/28/16 05:00 BASIC METABOLIC PANEL,BMP [CHEM] Timed CBC WITH AUTO DIFF [HEME] Timed INR,PT,PROTHROMBIN TIME [COAG] Timed - Plan Plan:: ASSESSMENT AND PLAN BILATERAL PNEUMONIA WITH SEPSIS-ongoing difficulty with shortness of breath and intermittent low blood pressures. Hypoxia has responded to interventions with nebulizer therapy and blood pressures have improved following fluid boluses. -Continue antibiotic therapy with Rocephin and levofloxacin HYPOXIC RESPIRATORY FAILURE-secondary to bilateral pneumonia -Supplemental oxygen as needed -Continue nebulizer therapy ATRIAL FIBRILLATION-status post ablation procedure, remains on anticoagulation with warfarin. INR today is markedly elevated then supratherapeutic. -Hold warfarin -Vitamin K 5 mg IV given earlier this morning -Repeat INR in a.m. CONGESTIVE HEART FAILURE-possible component of ongoing shortness of breath and hypoxia -Continue outpatient medical regimen -Reassess left ventricular function with echocardiogram CHRONIC KIDNEY DISEASE STAGE III -Closely monitor urine output and renal function during hospital stay MAINTENANCE ISSUES -DVT prophylaxis; current therapy with warfarin should provide adequate DVT prophylaxis -GI prophylaxis; continue Protonix -Kennedy catheter; not required -Nutrition; regular diet -Nicotine dependence; not indicated CODE STATUS-FULL CODE ADMISSION STATUS-patient will be admitted to inpatient status, expect at least a 2 night hospital stay for evaluation and management of problems as outlined above. At the time of this admission I do not reasonably expected evaluation and management of this problem will require more than a 96 hour hospital stay. DISPOSITION-anticipate discharge to home after the hospital stay. PRIMARY CARE PROVIDER-
[2016-09-27] MEDS ORDERED: Sodium Chloride 0.9% 1,000 ML IV ONE (14:45)
[2016-09-27] MEDS: Levofloxacin 500 MG Tab PO SCH (21:18)
[2016-09-27] MEDS: atorvaSTATin 20 MG Tab PO SCH (21:18)
[2016-09-28] MEDS: HYDROmorphone 0.5 MG/0.5 ML Syringe IVPUSH PRN (00:50)
[2016-09-28] MEDS: Amiodarone 200 MG Tab PO SCH ×2 (07:25→08:36)
[2016-09-28] MEDS: Aspirin 81 MG Tab.EC PO SCH ×2 (07:26→08:36)
[2016-09-28] MEDS ORDERED: Pantoprazole 40 MG Tab.CR PO SCH (07:30)
[2016-09-28 11:14] VITALS: BP 96/76
[2016-09-28] MEDS ORDERED: Bisacodyl 10 MG Supp RECTAL ONE (12:45)
--- NOTE | 2016-09-28 12:51 | PCM.DCSUM1 ---
Discharge Summary - Hospital Course Brief History: Mr. Leger is a 60-year-old gentleman who is admitted through the emergency room with symptoms of progressive shortness of breath and weakness , on initial evaluation was felt to have pneumonia contributing to current symptoms. - Discharge Data Discharge Date: 09/28/16 Discharge Disposition: Home, Self-Care 01 Condition: Good - Discharge Diagnosis/Problem(s) (1) Acute on chronic systolic CHF (congestive heart failure) SNOMED Code(s): 882926647, 311713914 ICD Code: I50.23 - ACUTE ON CHRONIC SYSTOLIC (CONGESTIVE) HEART FAILURE Status: Acute Current Visit: Yes (2) Mitral regurgitation SNOMED Code(s): 23293993 ICD Code: I34.0 - NONRHEUMATIC MITRAL (VALVE) INSUFFICIENCY Status: Acute Current Visit: Yes (3) Chronic atrial fibrillation SNOMED Code(s): 043618624 ICD Code: I48.2 - CHRONIC ATRIAL FIBRILLATION Status: Chronic Current Visit: Yes - Patient Summary/Data Consults: Consultations 09/26/16 07:59 Consult to Physical Therapy [PT Evaluation and Treatment] [CONS] Routine Please Evaluate and Treat. PT Reason for Consult: Strengthening Pending Discharge: No Discharge Disposition: Home Special Instructions: generalized weakness secondary to recent surgery, CHF This query below is only for informational purposes and is not editable. Admission Diagnosis/Problem: Pneumonia Hospital Course: This patient is a 60-year-old gentleman with a known history of congestive heart failure and atrial fibrillation. He developed symptoms of aggressive shortness of breath and weakness. On evaluation in the emergency department chest x-ray and CT scan suggested possible infection versus fluid. He was started on IV antibiotic therapy for probable pneumonia. Really did not improve and continued to have borderline blood pressures as well as mild elevation in heart rate. Echocardiogram was obtained on the day prior to transfer and showed severely decreased left ventricular function of 20-25% with severe mitral and tricuspid regurgitation. Compared to previous echocardiogram there was worsening of the mitral regurgitation and previously documented ejection fraction 2 years ago was in the range of 40-45%. After discussion of the situation with the patient and family decision was made to proceed with transfer to tertiary care Center for further subspecialty evaluation and management. He has been accepted in transfer by Dr. Loya at [facility] in [facility] and will be transferred via [facility] ambulance. - Patient Instructions Diet: Low Sodium Activity: As Tolerated Other/Special Instructions: Patient will be transferred to [facility] in [facility] via [facility]. - Discharge Plan Home Medications: Home Meds Warfarin [Coumadin] 5 mg PO ASDIRECTED 07/06/15 [History] atorvaSTATin [Lipitor] 40 mg PO BEDTIME 07/06/15 [History] Amiodarone [Cordarone] 200 mg PO DAILY 09/25/16 [History] Aspirin [Halfprin] 81 mg PO DAILY 09/25/16 [History] Carvedilol 6.25 mg PO BID 09/25/16 [History] Furosemide [Lasix] 30 mg PO DAILY 09/25/16 [History] Lisinopril [Prinivil] 20 mg PO DAILY 09/25/16 [History] Triamcinolone Acetonide [Kenalog 0.1% Crm] 0 gm TOP DAILY 09/25/16 [History] Warfarin Sodium [Coumadin] 7.5 mg PO ASDIRECTED 09/26/16 [History] Patient Handouts: Heart Failure, [id number] Referrals: PCP,None [Primary Care Provider] - - Discharge Summary/Plan Comment DC Time >30 min.: No - Patient Data Vitals - Most Recent: Last Vital Signs Temp 96.2 F 09/28/16 11:10 Pulse 117 H 09/28/16 11:10 Resp 16 09/28/16 11:10 BP 96/76 09/28/16 11:10 Pulse Ox 96 09/28/16 11:10 Weight - Most Recent: 182 lb 12.8 oz I&O - Last 24 hours: Intake & Output 09/27/16 09/28/16 09/28/16 22:59 06:59 14:59 Intake Total 1572 Output Total 425 125 Balance 1147 -125 Lab Results - Last 24 hrs: Laboratory Results - last 24 hr 09/28/16 09/28/16 09/28/16 Range/Units 05:15 05:15 05:15 WBC 6.5 (4.5-11.0) K/uL RBC 4.29 L (4.30-5.90) M/uL Hgb 12.8 (12.0-15.0) g/dL Hct 41.0 (40.0-54.0) % MCV 96 (80-98) fL MCH 30 (27-31) pg MCHC 31 L (32-36) % Plt Count 258 (150-400) K/uL Neut % (Auto) 60 (36-66) % Lymph % (Auto) 21 L (24-44) % [place] % (Auto) 16 H (2-6) % Eos % (Auto) 3 (2-4) % Baso % (Auto) 1 (0-1) % PT 20.7 H (9.5-12.0) sec INR 1.91 H D (0.80-1.20) Sodium 143 (140-148) mmol/L Potassium 4.5 (3.6-5.2) mmol/L Chloride 111 H (100-108) mmol/L Carbon Dioxide 27 (21-32) mmol/L Anion Gap 9.5 (5.0-14.0) mmol/L BUN 30 H (7-18) mg/dL Creatinine 1.3 (0.8-1.3) mg/dL Est Cr Clr Drug Dosing 57.06 mL/min Estimated GFR (MDRD) 57 L (>60) Glucose 89 (74-106) mg/dL Calcium 8.0 L (8.5-10.1) mg/dL Med Orders - Current: Current Medications Albuterol (Proventil Neb Soln) 2.5 mg NEB Q4H PRN PRN Reason: Shortness of Breath Last Admin: 09/26/16 21:56 Dose: 2.5 mg Amiodarone HCl (Cordarone) 200 mg PO DAILY [facility] Last Admin: 09/28/16 08:36 Dose: Not Given Aspirin (Halfprin) 81 mg PO DAILY [facility] Last Admin: 09/28/16 08:36 Dose: Not Given Atorvastatin Calcium (Lipitor) 40 mg PO BEDTIME [facility] Last Admin: 09/27/16 21:18 Dose: 40 mg Bisacodyl (Dulcolax) 10 mg RECTAL ONETIME ONE Stop: 09/28/16 12:46 Hydromorphone HCl (Dilaudid) 0.5 mg IVPUSH Q2H PRN PRN Reason: Pain Last Admin: 09/28/16 00:50 Dose: 0.5 mg Lorazepam (Ativan) 0.5 - 1 mg IVPUSH Q2H PRN PRN Reason: Anxiety Last Admin: 09/27/16 21:29 Dose: 0.5 mg Ondansetron HCl (Zofran) 4 mg IVPUSH Q4H PRN PRN Reason: Nausea/Vomiting Last Admin: 09/26/16 19:12 Dose: 4 mg Pantoprazole Sodium (Protonix) 40 mg PO ACBREAKFAST [facility] Last Admin: 09/28/16 07:25 Dose: 40 mg Pneumococcal Polyvalent Vaccine (Pneumovax 23) 0.5 ml IM .ONCE ONE Stop: 09/28/16 14:01 Sodium Chloride (Saline Flush) 10 ml FLUSH ASDIRECTED PRN PRN Reason: Keep Vein Open Last Admin: 09/25/16 20:05 Dose: 10 ml Discontinued Medications Carvedilol (Coreg) 6.25 mg PO BIDMEALS [facility] Last Admin: 09/27/16 07:34 Dose: 6.25 mg Fentanyl (Sublimaze) 50 mcg IVPUSH ONETIME ONE Stop: 09/25/16 22:45 Last Admin: 09/25/16 22:57 Dose: 50 mcg Furosemide (Lasix) 40 mg IVPUSH ONETIME ONE Stop: 09/25/16 20:54 Last Admin: 09/25/16 21:14 Dose: 40 mg Levofloxacin/Dextrose 500 mg/ (Premix) 100 mls @ 100 mls/hr IV ONETIME ONE Stop: 09/25/16 23:14 Last Admin: 09/25/16 23:46 Dose: 100 mls/hr Ceftriaxone Sodium 1 gm/ (Sodium Chloride) 50 mls @ 100 mls/hr IV ONETIME ONE Stop: 09/25/16 22:44 Last Admin: 09/25/16 23:11 Dose: 100 mls/hr Sodium Chloride (Normal Saline) 1,000 mls @ 125 mls/hr IV ASDIRECTED [facility] Last Admin: 09/26/16 22:43 Dose: 125 mls/hr Ceftriaxone Sodium 1 gm/ (Sodium Chloride) 50 mls @ 100 mls/hr IV Q24H [facility] Last Admin: 09/26/16 22:39 Dose: 100 mls/hr Sodium Chloride (Normal Saline) 500 mls @ 999 mls/hr IV .BOLUS ONE Stop: 09/27/16 02:38 Last Admin: 09/27/16 02:19 Dose: 999 mls/hr Sodium Chloride (Normal Saline) 500 mls @ 500 mls/hr IV .BOLUS ONE Stop: 09/27/16 06:39 Last Admin: 09/27/16 05:47 Dose: 500 mls/hr Phytonadione 5 mg/ Sodium (Chloride) 50.5 mls @ 100 mls/hr IV NOW ONE Stop: 09/27/16 08:30 Last Admin: 09/27/16 07:33 Dose: 100 mls/hr Sodium Chloride (Normal Saline) 1,000 mls @ 250 mls/hr IV ASDIRECTED [facility] Stop: 09/27/16 14:31 Last Admin: 09/27/16 17:15 Dose: 250 mls/hr Sodium Chloride (Normal Saline) 1,000 mls @ 250 mls/hr IV BOLUS ONE Stop: 09/27/16 18:44 Last Admin: 09/27/16 14:45 Dose: 250 mls/hr Levofloxacin (Levaquin) 500 mg PO Q24H [facility] Last Admin: 09/27/16 21:18 Dose: 500 mg Lisinopril (Prinivil) 20 mg PO DAILY [facility] Last Admin: 09/27/16 08:20 Dose: 20 mg Pantoprazole Sodium (Protonix Iv) 40 mg IVPUSH Q24H [facility] Last Admin: 09/27/16 08:20 Dose: 40 mg Warfarin Sodium (Coumadin) 5 mg PO DAILY@1300 [facility] *Q Meaningful Use (DIS) - VTE *Q VTE Criteria *Q: - Stroke *Q Stroke Criteria *Q: - AMI *Q AMI Criteria *Q:
--- NOTE | 2016-09-28 13:39 | ECHO ---
REFERRING PRACTITIONER: 1. AO ROOT: 3.37. (NL = 2.0-3.7) 2. AORTIC VALVE EXCURSION: 3. LA: 4.45CM (NL = 1.9-4.0) 4. RV: 2.83. (NL = .09-2.6) 5. LV REDDY: 6.31 (NL = 3.5-5.7) 6. LV SYST: 5.68(NL = 2.2-4.3) 7. FRACTIONAL SHORTENIN. (6102) 8. EJECTION FRACTION: 20% to 25%. (5075) 9. IVS: 1.13(NL = 0.6-1.1) 10. LVPW: 1.06 (NL = 0.6 1.1) INDICATION: Hypoxia and increased shortness of breath. By 2D echo left ventricular function appears to be severely decreased consistent with estimated ejection fraction of 20% to 25%. There is severe global hypokinesis and paradoxical motion of the interventricular septum. There is a small hemodynamically insignificant pericardial effusion. There is biatrial enlargement. Aortic root is within normal range for size. There is mild enlargement of the right ventricle with preserved right ventricular function. There is enlargement of the left ventricle. By Doppler and color Doppler, there was borderline elevation in estimated right ventricular pressure at 38 mmHg. There was severe MR and severe TR. Mild AI and trace PI. IMPRESSION: 1. Severely decreased left ventricular function. Estimated ejection fraction of 20% to 25%. 2. Severe global left ventricular hypokinesis with left ventricular enlargement. 3. Mild right ventricular enlargement with preserved right ventricular function. 4. Biatrial enlargement. 5. Small hemodynamically insignificant pericardial effusion. 6. Borderline elevation and estimated right ventricular pressure at 38 mmHg. 7. Severe mitral regurgitation. 8. Severe tricuspid regurgitation. 9. Mild aortic insufficiency. 10.Trace pulmonary insufficiency. /[id number] MELO
--- NOTE | 2016-09-28 13:43 | ECHO ---
REFERRING PRACTITIONER: 1. AO ROOT: 3.37. (NL = 2.0-3.7) 2. AORTIC VALVE EXCURSION: 3. LA: CM (NL = 1.9-4.0) 4. RV: 2.83. (NL = .09-2.6) 5. LV REDDY: (NL = 3.5-5.7) 6. LV SYST: (NL = 2.2-4.3) 7. FRACTIONAL SHORTENIN. (2542) 8. EJECTION FRACTION: 20% to 25%. (5075) 9. IVS: (NL = 0.6-1.1) 10. LVPW: (NL = 0.6 - 1.1) INDICATION: Hypoxia and increased shortness of breath. LEFT ATRIUM: 4.45. LEFT VENTRICLE DIASTOLIC: 6.31. LEFT VENTRICLE SYSTOLIC: 5.68. INTERVENTRICULAR SEPTAL WALL THICKNESS: 1.13. LEFT VENTRICULAR POSTERIOR WALL THICKNESS: 1.06. By 2D echo left ventricular function appears to be severely decreased consistent with estimated ejection fraction of 20% to 25%. There is severe global hypokinesis and paradoxical motion of the interventricular septum. There is a small hemodynamically insignificant pericardial effusion. There is biatrial enlargement. Aortic root is within normal range for size. There is mild enlargement of the right ventricle with preserved right ventricular function. There is enlargement of the left ventricle. By Doppler and color Doppler, there was borderline elevation in estimated right ventricular pressure at 38 mmHg. There was severe MR and severe TR. Mild AI and trace PI. IMPRESSION: 1. Severely decreased left ventricular function. Estimated ejection fraction of 20% to 25%. 2. Severe global left ventricular hypokinesis with left ventricular enlargement. 3. Mild right ventricular enlargement with preserved right ventricular function. 4. Biatrial enlargement. 5. Small hemodynamically insignificant pericardial effusion. 6. Borderline elevation and estimated right ventricular pressure at 38 mmHg. 7. Severe mitral regurgitation. 8. Severe tricuspid regurgitation. 9. Mild aortic insufficiency. 10.Trace pulmonary insufficiency. /[id number]
[2016-09-28] MEDS ORDERED: Pneumococcal Polyvalent-23 Vaccine 0.5 ML SDV IM ONE (14:00)
== END 2016-09-28 13:45 | DRG 194 ==
LOC: JP.ED 18:43 → JP.MS 22:44
PROVIDERS: ADMIT Family Medicine; ATTEND Hospitalist
DX: I13.0 Hypertensive heart and chronic kidney disease with heart failure and stage 1 through stage 4 chronic kidney disease, or unspecified chronic kidney disease (principal); I50.23 Acute on chronic systolic (congestive) heart failure; N18.3 Chronic kidney disease, stage 3 (moderate); F17.220 Nicotine dependence, chewing tobacco, uncomplicated; J18.9 Pneumonia, unspecified organism; I42.9 Cardiomyopathy, unspecified; J96.91 Respiratory failure, unspecified with hypoxia; I34.0 Nonrheumatic mitral (valve) insufficiency; Z98.890 Other specified postprocedural states; E78.00 Pure hypercholesterolemia, unspecified; H54.7 Unspecified visual loss; I36.1 Nonrheumatic tricuspid (valve) insufficiency; Z79.82 Long term (current) use of aspirin; Z79.01 Long term (current) use of anticoagulants; Z88.0 Allergy status to penicillin; F41.9 Anxiety disorder, unspecified
CPT/HCPCS: 36415; 71020; 71020-26; 71250; 76705; 76705-26; 80048; 80053; 81001; 82308; 83690; 83880; 84484; 85025; 85027; 85610; 93005; 93306; 93306-26; 96361; 96365; 96375; 97110-GP; 97116-GP; 97162-GP; 97530-GP; 99285-25; A9270-GY; C9113; J0696; J1170; J1940; J1956; J2060; J2405; J3010; J3430; J7040; J7050

== ENCOUNTER 2016-10-06 11:01 | Emergency (ER) | payer MEDICAID ==
[2016-10-06 11:26] VITALS: BP 94/67
[2016-10-06] MEDS ORDERED: LORazepam 1 MG Tab PO ONE (11:35)
--- NOTE | 2016-10-06 11:38 | EDM.PDOC ---
ED HPI GENERAL MEDICAL PROBLEM - General Chief Complaint: General Stated Complaint: SOB / STOMACH PAIN Time Seen by Provider: 10/06/16 11:23 Source of Information: Reports: Patient, Family, RN Notes Reviewed History Limitations: Reports: No Limitations - History of Present Illness INITIAL COMMENTS - FREE TEXT/NARRATIVE: 60-year-old gentleman presents emergency department day complaint of shortness of breath he has a known history of systolic congestive heart failure as well as atrial fibrillation was just discharged from the hospital in [place] yesterday , he states he been feeling short of breath for about a month he also admits to being very anxious he is currently wearing a life vest - Related Data Allergies Allergy/AdvReac Type Severity Reaction Status Date / Time Penicillins Allergy Cannot Verified 07/08/15 07:19 Remember Home Meds: Home Meds Warfarin [Coumadin] 5 mg PO ASDIRECTED 07/06/15 [History] atorvaSTATin [Lipitor] 40 mg PO BEDTIME 07/06/15 [History] Amiodarone [Cordarone] 200 mg PO DAILY 09/25/16 [History] Aspirin [Halfprin] 81 mg PO DAILY 09/25/16 [History] Carvedilol 6.25 mg PO BID 09/25/16 [History] Lisinopril [Prinivil] 20 mg PO DAILY 09/25/16 [History] Triamcinolone Acetonide [Kenalog 0.1% Crm] 0 gm TOP DAILY 09/25/16 [History] Lisinopril [Prinivil] 1 tab PO DAILY 10/06/16 [History] Magnesium Oxide [Magnesium] 1 tab PO BID 10/06/16 [History] Ondansetron [IMW: Ondansetron ODT] 4 mg PO .EVERY 6 HOURS 10/06/16 [History] Potassium Chloride [Potassium Chloride] 2 tab PO DAILY 10/06/16 [History] Torsemide [Torsemide] 1.5 tab PO DAILY 10/06/16 [History] Past Medical History HEENT History: Reports: Impaired Vision Cardiovascular History: Reports: Afib, Arrhythmia, Heart Failure, High Cholesterol, Hypertension, Other (See Below) Other Cardiovascular History: edema Respiratory History: Reports: Bronchitis, Recurrent Gastrointestinal History: Reports: Cholelithiasis Genitourinary History: Reports: Renal Calculus Hematologic History: Reports: Other (See Below) Other Hematologic History: coumadin use, with current high INR Dermatologic History: Reports: Other (See Below) Other Dermatologic History: rash on legs - Infectious Disease History Infectious Disease History: Reports: Measles - Past Surgical History GI Surgical History: Reports: Cholecystectomy Social & Family History - Family History Family Medical History: Noncontributory - Tobacco Use Smoking Status *Q: Never Smoker Second Hand Smoke Exposure: No - Caffeine Use Caffeine Use: Reports: None - Recreational Drug Use Recreational Drug Use: No ED ROS GENERAL - Review of Systems Review Of Systems: See Below Constitutional: Reports: Fatigue HEENT: Reports: No Symptoms Respiratory: Reports: Shortness of Breath Cardiovascular: Reports: Dyspnea on Exertion. Denies: Chest Pain GI/Abdominal: Reports: No Symptoms : Reports: No Symptoms Musculoskeletal: Reports: No Symptoms Skin: Reports: No Symptoms Psychiatric: Reports: Anxiety ED EXAM, GENERAL - Physical Exam Exam: See Below Free Text/Narrative:: General: Male, not in any distress, alert and oriented x3 HEENT: head is atraumatic normocephalic, eyes pupils equal round reactive to light, sclera clear no conjunctivitis appreciated. Ears tympanic membranes clear and white landmarks and light reflex are present bilaterally canals are clear. Nose no septal deviation, nares are clear, no blood present. Mouth mucosa is moist and pink no erythema or exudate noted in soft palate, tongue is midline uvula is midline, dentition is intact. Neck: Supple no thyromegaly no tracheal deviation. Nodes: Cervical nodes subclavicular nodes nontender no palpable lymphadenopathy noted. Lungs: clear to auscultation bilaterally with symmetrical respirations, no adventitious noise appreciated. CV: Irregularly irregular rate and rhythm S1 and S2 appreciated no murmurs rubs or gallops noted. Abdomen: Soft, nontender, no palpable masses or organomegaly appreciated, no distention no guarding bowel sounds are present, . Neuro: Cranial nerves II through XII grossly intact Skin: Warm and dry, intact Extremities: No lower extremity edema appreciated, . Course - Vital Signs Last Recorded V/S: Last Vital Signs Temp 98.4 F 10/06/16 11:24 Pulse 65 10/06/16 11:24 Resp 14 10/06/16 11:24 BP 94/67 10/06/16 11:24 Pulse Ox 97 10/06/16 11:24 - Orders/Labs/Meds Labs: Laboratory Tests 10/06/16 10/06/16 10/06/16 Range/Units 11:49 11:49 11:49 WBC 7.9 (4.5-11.0) K/uL RBC 4.54 (4.30-5.90) M/uL Hgb 13.1 (12.0-15.0) g/dL Hct 41.1 (40.0-54.0) % MCV 91 (80-98) fL MCH 29 (27-31) pg MCHC 32 (32-36) % Plt Count 215 (150-400) K/uL Neut % (Auto) 62 (36-66) % Lymph % (Auto) 16 L (24-44) % [place] % (Auto) 17 H (2-6) % Eos % (Auto) 4 (2-4) % Baso % (Auto) 1 (0-1) % PT 32.1 H (9.5-12.0) sec INR 2.93 H (0.80-1.20) Sodium 143 (140-148) mmol/L Potassium 4.1 (3.6-5.2) mmol/L Chloride 104 (100-108) mmol/L Carbon Dioxide 31 (21-32) mmol/L Anion Gap 7.6 (5.0-14.0) mmol/L BUN 25 H (7-18) mg/dL Creatinine 1.4 H (0.8-1.3) mg/dL Est Cr Clr Drug Dosing 54.96 mL/min Estimated GFR (MDRD) 52 L (>60) Glucose 92 (74-106) mg/dL Calcium 8.4 L (8.5-10.1) mg/dL Total Bilirubin 1.0 (0.2-1.0) mg/dL AST 43 H (15-37) U/L ALT 86 H (12-78) U/L Alkaline Phosphatase 119 H (46-116) U/L [id number] Pept 3425 H (5-125) pg/mL Total Protein 7.0 (6.4-8.2) g/dL Albumin 3.0 L (3.4-5.0) g/dL Globulin 4.0 H (2.3-3.5) g/dL Albumin/Globulin Ratio 0.8 L (1.2-2.2) Meds: Medications Discontinued Medications Generic Name Dose Route Start Last Admin Trade Name Deanna PRN Reason Stop Dose Admin Lorazepam 1 mg 10/06/16 11:35 10/06/16 12:06 Ativan PO 10/06/16 11:36 1 mg ONETIME ONE Administration Ondansetron HCl 4 mg 10/06/16 12:43 10/06/16 12:46 Zofran Odt PO 10/06/16 12:44 4 mg ONETIME ONE Administration Torsemide 40 mg 10/06/16 13:37 Demadex PO 10/06/16 13:38 ONETIME ONE Departure - Departure Time of Disposition: 13:40 Disposition: Home, Self-Care 01 Condition: fair Clinical Impression: Systolic congestive heart failure Qualifiers: Congestive heart failure chronicity: acute on chronic Qualified Code(s): I50.23 - Acute on chronic systolic (congestive) heart failure - Discharge Information Forms: ED Department Discharge Additional Instructions: Increased torosimide from 45 mg once a day to 45 mg twice a day keep your followup appointment on Saturday and recheck your electrolytes at that time, call return to the emergency department with worsening of symptoms - Assessment/Plan Plan: Assessment Acuity = acute on chronic Site and laterality = systolic congestive heart failure complicated patient with known atrial fibrillation on chronic anticoagulation Etiology = suspicious for recent change in medication to furosemide to torosimide with inadequate dosing level Manifestations = shortness of breath mainly with lying down Location of injury = home Lab values = CBC unremarkable INR therapeutic at 2.93 creatinine elevated at 1.4 consistent chronic renal failure stage GIII a AST elevated at 43 ALT elevated 6 consistent elevated liver enzymes BNP elevated at 3425 this is an increase from the baseline 3 days ago of around 1200 albumin low at 3.0 consistent hypoalbuminemia Plan called discussed case with hospitalist kindergarten paraprofessional at [facility] she did review his records we discussed the case he is not hypoxic not hypotensive felt he did not meet inpatient criteria at this time however he does have followup appointment with his primary care on Saturday plan is to increase his diuretic to 45 mg by mouth twice a day recheck lab work on Saturday Patient was in agreement with the plan all questions were answered, they were instructed to return to the emergency department or call for worsening symptoms. This note was dictated using redIT voice recognition software please call with any questions.
[2016-10-06] MEDS ORDERED: Ondansetron 4 MG Tab.DIS PO ONE (12:43)
[2016-10-06] MEDS ORDERED: Torsemide 20 MG Tab PO ONE (13:37)
== END 2016-10-06 14:04 | disposition home or self-care (01) ==
LOC: JP.ED 11:01
DX: I11.0 Hypertensive heart disease with heart failure (principal); I50.23 Acute on chronic systolic (congestive) heart failure; I48.91 Unspecified atrial fibrillation; E78.00 Pure hypercholesterolemia, unspecified; Z88.0 Allergy status to penicillin; Z79.01 Long term (current) use of anticoagulants; Z79.82 Long term (current) use of aspirin; Z79.899 Other long term (current) drug therapy; Z90.49 Acquired absence of other specified parts of digestive tract
CPT/HCPCS: 36415; 80053; 83880; 85025; 85610; 99284; A9270

== ENCOUNTER 2021-04-06 17:08 | Emergency (ER) | payer MEDICARE ==
--- NOTE | 2021-04-06 18:17 | EDM.PDOC ---
ED HPI GENERAL MEDICAL PROBLEM - General Chief Complaint: Cardiovascular Problem Stated Complaint: HEART PROBLEMS Time Seen by Provider: 04/06/21 18:05 Source of Information: Reports: Patient, Old Records History Limitations: Reports: No Limitations - History of Present Illness INITIAL COMMENTS - FREE TEXT/NARRATIVE: Domenic is a 65-year-old male sent by his transit mix operator at , Dr. Quintero" for evaluation of paroxysmal atrial fibrillation. He comes over with a pulse rate between 130 and 150 bpm. The patient is unclear when he first went into atrial fibrillation but he believes it was March 20. He has a history of paroxysmal atrial fibrillation in the past and has been cardioverted both successfully and unsuccessfully. The patient has been conversing with his transit mix operator at the clinic who has been monitoring his heart rate and it the your setting him up for a transesophageal echocardiogram and cardioversion but ended up sending him here for evaluation. Patient is on carvedilol, torsemide, lisinopril, warfarin, and low-dose aspirin. He believes that since he started filling his torsemide for 3 months instead of 1 month that after several months they become less potent. She instructed him to take 2 torsemide daily for the last 3 days which he did without improvement. - Related Data Allergies Allergy/AdvReac Type Severity Reaction Status Date / Time Penicillins Allergy Cannot Verified 04/06/21 17:35 Remember Home Meds: Home Meds Warfarin [Coumadin] 5 mg PO ASDIRECTED 07/06/15 [History] atorvaSTATin [Lipitor] 40 mg PO BEDTIME 07/06/15 [History] Aspirin [Halfprin] 81 mg PO DAILY 09/25/16 [History] Lisinopril [Prinivil] 20 mg PO DAILY 09/25/16 [History] carvediloL [Carvedilol] 6.25 mg PO BID 09/25/16 [History] Magnesium Oxide [Magnesium] 1 tab PO BID 10/06/16 [History] Torsemide 2 tab PO DAILY 10/06/16 [History] lisinopriL [Prinivil] 1 tab PO DAILY 10/06/16 [History] Amiodarone [Cordarone] 200 mg PO DAILY #14 tab 04/07/21 [Rx] Digoxin 125 mcg PO DAILY #30 tablet 04/07/21 [Rx] Past Medical History HEENT History: Reports: Impaired Vision Cardiovascular History: Reports: Afib, Arrhythmia, Heart Failure, High Cholesterol, Hypertension, Other (See Below) Other Cardiovascular History: edema Respiratory History: Reports: Bronchitis, Recurrent Gastrointestinal History: Reports: Cholelithiasis Genitourinary History: Reports: Renal Calculus Hematologic History: Reports: Other (See Below) Other Hematologic History: coumadin use, with current high INR Dermatologic History: Reports: Other (See Below) Other Dermatologic History: rash on legs - Infectious Disease History Infectious Disease History: Reports: Measles - Past Surgical History HEENT Surgical History: Reports: None Cardiovascular Surgical History: Reports: AICD, Cardiac Ablation, Pacer Other Cardiovascular Surgeries/Procedures: Jun 2013 Respiratory Surgical History: Reports: None GI Surgical History: Reports: Cholecystectomy Male Surgical History: Reports: None Social & Family History - Family History Family Medical History: No Pertinent Family History - Caffeine Use Caffeine Use: Reports: None - Recreational Drug Use Recreational Drug Use: No ED ROS GENERAL - Review of Systems Review Of Systems: See Below Constitutional: Reports: No Symptoms HEENT: Reports: No Symptoms Respiratory: Reports: No Symptoms Cardiovascular: Reports: Chest Pain (Pressure in the subxiphoid space), Palpitations (Atrial fibrillation with a rapid ventricular response) Endocrine: Reports: No Symptoms GI/Abdominal: Reports: No Symptoms : Reports: No Symptoms Musculoskeletal: Reports: No Symptoms Skin: Reports: No Symptoms Neurological: Reports: No Symptoms Psychiatric: Reports: No Symptoms Hematologic/Lymphatic: Reports: No Symptoms ED EXAM, GENERAL - Physical Exam Exam: See Below Exam Limited By: No Limitations General Appearance: Alert, No Apparent Distress, Anxious (Anxiety with a hint of indifference) Eye Exam: Bilateral Eye: EOMI, PERRL Throat/Mouth: Normal Inspection, Normal Oropharynx, Normal Voice, No Airway Compromise Head: Atraumatic, Normocephalic Neck: Normal Inspection, Supple, Non-Tender, Full Range of Motion. No: Carotid Bruit Respiratory/Chest: No Respiratory Distress, Lungs Clear, Normal Breath Sounds, No Accessory Muscle Use, Chest Non-Tender. No: Rales, Rhonchi, Wheezing Cardiovascular: Normal Peripheral Pulses, Tachycardia, Diastolic Murmur (1/6 diastolic murmur heard in the apex), Systolic Murmur (3/6 holosystolic murmur heard at the left upper chest. ), Irregularly Irregular Peripheral Pulses: 2+: Radial (L), Radial (R), Posterior Tibial (L), Posterior Tibial (R) GI/Abdominal: Normal Bowel Sounds, Soft, Non-Tender Extremities: Normal Inspection, Normal Range of Motion, No Pedal Edema Neurological: Alert, Oriented, Normal Cognition, No Motor/Sensory Deficits Psychiatric: Normal Affect, Normal Mood Skin Exam: Warm, Dry, Intact, Normal Color #1 Interpretation EKG Date: 04/06/21 Time: 18:27 Rhythm: A-Fib (Atrial fibrillation with a ventricular rate between 120 and 144 bpm) [place]: LAD-Left [place] Deviation P-Wave: Absent QRS: LBBB Comparison: No Change (No change compared to previous EKG done on 09/25/2016.) Course - Vital Signs Last Recorded V/S: Last Vital Signs Temp 36.7 C 04/06/21 17:29 Pulse 95 04/07/21 04:20 Resp 15 04/07/21 04:20 BP 130/81 04/07/21 04:20 Pulse Ox 97 04/07/21 04:20 - Orders/Labs/Meds Orders: Active Orders 24 hr Category Date Time Status Sodium Chloride 0.9% [Saline Flush] Med 04/06/21 18:21 Active 10 ml FLUSH ASDIRECTED PRN Isolation [COMM] Stat Oth 04/06/21 18:20 Ordered Saline Lock Insert [OM.PC] Routine Oth 04/06/21 18:21 Ordered EKG 12 Lead [EK] Stat Ther 04/06/21 17:27 Ordered Medication Orders Sodium Chloride (Sodium Chloride 0.9% 10 Ml Syringe) 10 ml FLUSH ASDIRECTED PRN PRN Reason: Keep Vein Open Last Admin: 04/06/21 18:39 Dose: 10 ml Documented by: PREILOR Labs: Laboratory Tests 04/06/21 04/06/21 04/06/21 Range/Units 18:27 18:30 18:30 WBC 9.1 (4.5-11.0) K/uL RBC 4.01 L (4.30-5.90) M/uL Hgb 12.2 (12.0-15.0) g/dL Hct 37.2 L (40.0-54.0) % MCV 93 (80-98) fL MCH 30 (27-31) pg MCHC 33 (32-36) % Plt Count 207 (150-400) K/uL Neut % (Auto) 70.9 H (36-66) % Lymph % (Auto) 15.9 L (24-44) % [place] % (Auto) 10.7 H (2-6) % Eos % (Auto) 1.9 L (2-4) % Baso % (Auto) 0.6 (0-1) % PT 30.0 H (9.2-10.6) sec INR 3.0 APTT 32.2 H (21.4-31.8) sec Sodium (140-148) mmol/L Potassium (3.6-5.2) mmol/L Chloride (100-108) mmol/L Carbon Dioxide (21-32) mmol/L Anion Gap (5.0-14.0) mmol/L BUN (7-18) mg/dL Creatinine (0.8-1.3) mg/dL Est Cr Clr Drug Dosing mL/min Estimated GFR (MDRD) (>60) Glucose (74-106) mg/dL Calcium (8.5-10.1) mg/dL Magnesium (1.8-2.4) mg/dL Total Bilirubin (0.2-1.0) mg/dL AST (15-37) U/L ALT (12-78) U/L Alkaline Phosphatase (46-116) U/L Troponin I (0.000-0.056) ng/mL NT-Pro-B Natriuret Pep (5-125) pg/mL Total Protein (6.4-8.2) g/dL Albumin (3.4-5.0) g/dL Globulin (2.3-3.5) g/dL Albumin/Globulin Ratio (1.2-2.2) Free T4 1.06 (0.76-1.46) ng/dL TSH, Ultra Sensitive (0.358-3.740) uIU/mL 04/06/21 04/06/21 Range/Units 18:30 18:30 WBC (4.5-11.0) K/uL RBC (4.30-5.90) M/uL Hgb (12.0-15.0) g/dL Hct (40.0-54.0) % MCV (80-98) fL MCH (27-31) pg MCHC (32-36) % Plt Count (150-400) K/uL Neut % (Auto) (36-66) % Lymph % (Auto) (24-44) % [place] % (Auto) (2-6) % Eos % (Auto) (2-4) % Baso % (Auto) (0-1) % PT (9.2-10.6) sec INR APTT (21.4-31.8) sec Sodium 144 (140-148) mmol/L Potassium 4.5 (3.6-5.2) mmol/L Chloride 107 (100-108) mmol/L Carbon Dioxide 26 (21-32) mmol/L Anion Gap 10.6 (5.0-14.0) mmol/L BUN 37 H (7-18) mg/dL Creatinine 1.6 H (0.8-1.3) mg/dL Est Cr Clr Drug Dosing 43.61 mL/min Estimated GFR (MDRD) 44 L (>60) Glucose 80 (74-106) mg/dL Calcium 8.9 (8.5-10.1) mg/dL Magnesium 2.2 (1.8-2.4) mg/dL Total Bilirubin 0.8 (0.2-1.0) mg/dL AST 30 (15-37) U/L ALT 59 (12-78) U/L Alkaline Phosphatase 80 (46-116) U/L Troponin I < 0.017 (0.000-0.056) ng/mL NT-Pro-B Natriuret Pep 8236 H (5-125) pg/mL Total Protein 7.1 (6.4-8.2) g/dL Albumin 3.6 (3.4-5.0) g/dL Globulin 3.5 (2.3-3.5) g/dL Albumin/Globulin Ratio 1.0 L (1.2-2.2) Free T4 (0.76-1.46) ng/dL TSH, Ultra Sensitive 5.367 H (0.358-3.740) uIU/mL Meds: Medications Generic Name Dose Route Start Last Admin Trade Name Freq PRN Reason Stop Dose Admin Sodium Chloride 10 ml 04/06/21 18:21 04/06/21 18:39 Sodium Chloride 0.9% 10 Ml Syringe FLUSH 10 ml ASDIRECTED PRN Administration Keep Vein Open Discontinued Medications Generic Name Dose Route Start Last Admin Trade Name Deanna PRN Reason Stop Dose Admin Amiodarone HCl 200 mg 04/06/21 21:26 04/06/21 21:38 Amiodarone 200 Mg Tab PO 04/06/21 21:27 200 mg ONETIME ONE Administration Digoxin 250 mcg 04/06/21 19:01 04/06/21 19:07 Digoxin 500 Mcg/2 Ml Amp IVPUSH 04/06/21 19:02 250 mcg ONETIME ONE Administration Digoxin 125 mcg 04/06/21 20:02 04/06/21 20:16 Digoxin 500 Mcg/2 Ml Amp IVPUSH 04/06/21 20:03 125 mcg ONETIME ONE Administration - Re-Assessments/Exams Free Text/Narrative Re-Assessment/Exam: 04/06/21 19:07 I reviewed the patient's records including his recent echocardiogram, medications, and past medical history. The patient is on Coumadin for chronic recurrent paroxysmal atrial fibrillation and has a history significant for moderate mitral regurgitation and moderate aortic insufficiency, hypertension, chronic systolic heart failure and a tachycardia induced cardiomyopathy. He is on atorvastatin 40 mg daily, carvedilol 25 mg 2 times a day, lisinopril 20 mg daily, magnesium oxide 40 mg 2 times a day, torsemide 10 mg 2 tablets daily for the last 3 days, aspirin 81 mg, warfarin 5 mg as directed by the Coumadin clinic and is allergic to penicillin. He is vaccinated for COVID-19. He also has received his influenza vaccine this year. His recent echocardiogram shows that he has a cardiomyopathy with a left ventricular ejection fraction of 25 to 30% and severe left ventricular global hypokinesia. His right ventricular systolic function is also known to be reduced. He has biatrial enlargement causing severe tricuspid regurgitation is suspected his right ventricular systolic pressure is between 40 and 45 mmHg. At the time of the procedure being done on 04/04/2021 the patient was in sinus rhythm. The patient normally sees Dr. Hendricks in cardiology at . 04/06/21 19:17 we will try to rate control the patient giving him digoxin 0.25 mg IV. If this is successful we will put him on digoxin 125 mcg daily and have him follow-up with his transit mix operator at [facility]. 04/06/21 20:06 patient is still not adequately rate controlled after an hour following the digoxin 0.25 mg IV so we will give an additional 0.125 mg IV. If still not improving we may have to add amiodarone 200 mg p.o. 04/07/21 06:02 patient was observed overnight and remained relatively rate controlled with heart rate between 88 and 102. We will continue the digoxin 0.125 mg p.o. daily and amiodarone 200 mg p.o. daily as an outpatient. I will have him follow-up with his transit mix operator at [facility] today. His thyroid studies show that he has sick euthyroid with a TSH of 5.367 and a free T4 of 1.06. He has an heart failure with his BNP being 8236. Troponin is normal at less than 0.017. His PT/INR is 30/3.0 and his PTT is 32.2. His comprehensive metabolic panel is unremarkable except for a BUN 37 with a creatinine of 1.6 and a GFR calculated at 44 which makes him stage IIIa chronic kidney failure. His CBC is normal and his magnesium is 2.2. Discussed indications for the patient to return to the ED. His sister will come get him at 7 AM. Departure - Departure Time of Disposition: 07:00 Disposition: Home, Self-Care 01 Clinical Impression: Atrial fibrillation with rapid ventricular response, Chronic systolic CHF (congestive heart failure), NYHA class 2, Biatrial enlargement, Tachycardia induced cardiomyopathy Mitral regurgitation Qualifiers: Cardiac valve disease etiology: nonrheumatic Qualified Code(s): I34.0 - Nonrheumatic mitral (valve) insufficiency Aortic insufficiency Qualifiers: Cardiac valve disease etiology: nonrheumatic Qualified Code(s): I35.1 - Nonrheumatic aortic (valve) insufficiency Prescriptions: Amiodarone [Cordarone] 200 mg PO DAILY #14 tab Digoxin 125 mcg PO DAILY #30 tablet Instructions: Heart Failure, Self-Care, [id number], Atrial Fibrillation, [id number] Referrals: Billy Wu NP [Primary Care Provider] - Forms: ED Department Discharge Sepsis Event Note (ED) - Evaluation Sepsis Screening Result: No Definite Risk - Focused Exam Vital Signs: Vital Signs Pulse Pulse Resp BP Pulse Ox 04/07/21 04:20 95 15 130/81 97 04/07/21 03:20 88 16 123/90 97 04/07/21 02:50 88 16 129/90 96 04/07/21 02:20 83 130/87 04/07/21 01:50 95 124/87 04/07/21 01:20 94 14 131/79 96 04/07/21 00:50 92 15 132/87 96 04/07/21 00:20 95 16 135/91 H 97 04/06/21 23:50 91 15 130/97 H 96 04/06/21 23:20 97 15 137/88 96 04/06/21 22:20 98 15 136/98 H 97 04/06/21 20:50 117 H 12 132/90 98 04/06/21 20:20 128 H 15 129/93 H 97 04/06/21 20:16 139 H 04/06/21 19:50 100 13 126/90 99 04/06/21 19:15 115 H 13 127/88 98 04/06/21 19:07 129 H 04/06/21 18:50 118 H 14 110/81 98 04/06/21 18:20 118 H 14 123/83 96 - Problem List & Annotations (1) Atrial fibrillation with rapid ventricular response SNOMED Code(s): 108742686004030 Code(s): I48.91 - UNSPECIFIED ATRIAL FIBRILLATION Status: Chronic Priority: High Current Visit: Yes (2) Aortic insufficiency SNOMED Code(s): 78324654 Code(s): I35.1 - NONRHEUMATIC AORTIC (VALVE) INSUFFICIENCY Status: Chronic Priority: High Current Visit: Yes Qualifiers: Cardiac valve disease etiology: nonrheumatic Qualified Code(s): I35.1 - Nonrheumatic aortic (valve) insufficiency (3) Biatrial enlargement SNOMED Code(s): 439110699 Code(s): I51.7 - CARDIOMEGALY Status: Chronic Priority: High Current Visit: Yes (4) Tachycardia induced cardiomyopathy SNOMED Code(s): 517825760 Code(s): R00.0 - TACHYCARDIA, UNSPECIFIED; I43 - CARDIOMYOPATHY IN DISEASES CLASSIFIED ELSEWHERE Status: Chronic Priority: High Current Visit: Yes (5) Mitral regurgitation SNOMED Code(s): 92265564 Code(s): I34.0 - NONRHEUMATIC MITRAL (VALVE) INSUFFICIENCY Status: Chronic Priority: High Current Visit: Yes Qualifiers: Cardiac valve disease etiology: nonrheumatic Qualified Code(s): I34.0 - Nonrheumatic mitral (valve) insufficiency (6) Chronic CHF (congestive heart failure) SNOMED Code(s): 88858464 Code(s): I50.9 - HEART FAILURE, UNSPECIFIED Status: Chronic Priority: High Current Visit: No Qualifiers: Qualified Code(s): I50.9 - Heart failure, unspecified (7) Chronic systolic CHF (congestive heart failure), NYHA class 2 SNOMED Code(s): 011146082, 337205322, 366197319 Code(s): I50.22 - CHRONIC SYSTOLIC (CONGESTIVE) HEART FAILURE Status: Chronic Priority: High Current Visit: Yes - Problem List Review Problem List Initiated/Reviewed/Updated: Yes - My Orders Last 24 Hours: My Active Orders 04/06/21 18:20 Isolation [COMM] Stat 04/06/21 18:21 Sodium Chloride 0.9% [Saline Flush] 10 ml FLUSH ASDIRECTED PRN Saline Lock Insert [OM.PC] Routine - Assessment/Plan Last 24 Hours: My Active Orders 04/06/21 18:20 Isolation [COMM] Stat 04/06/21 18:21 Sodium Chloride 0.9% [Saline Flush] 10 ml FLUSH ASDIRECTED PRN Saline Lock Insert [OM.PC] Routine
[2021-04-06] MEDS ORDERED: Sodium Chloride 0.9% 10 ML Syringe FLUSH PRN (18:21)
[2021-04-06] MEDS ORDERED: Digoxin 500 MCG/2 ML Amp IVPUSH ONE ×2 (19:01→20:02)
[2021-04-06] MEDS ORDERED: Amiodarone 200 MG Tab PO ONE (21:26)
[2021-04-07 06:04] VITALS: BP 123/81; PULSE 82
== END 2021-04-07 07:28 | disposition home or self-care (01) ==
LOC: JP.ED 17:08
DX: I34.0 Nonrheumatic mitral (valve) insufficiency (principal); I35.1 Nonrheumatic aortic (valve) insufficiency; I11.9 Hypertensive heart disease without heart failure; I11.0 Hypertensive heart disease with heart failure; I50.22 Chronic systolic (congestive) heart failure; I48.91 Unspecified atrial fibrillation; R00.0 Tachycardia, unspecified; E78.00 Pure hypercholesterolemia, unspecified; Z79.01 Long term (current) use of anticoagulants; Z79.899 Other long term (current) drug therapy; Z79.82 Long term (current) use of aspirin; Z88.0 Allergy status to penicillin
CPT/HCPCS: 36415; 80053; 83735; 83880; 84439; 84443; 84484; 85025; 85610; 85730; 93005; 96374; 96376; 99285; A9270; J1160